=== PATIENT | female | born 1945 | race Caucasian/White ===

== ENCOUNTER → 2017-08-15 | Outpatient (CLI) | payer OTHER, MEDICARE ==
[~2017-08-15] MED LIST: ACE3 PO; ALE10 PO; ALEN70TA43 PO; BIOT1TAB12 PO; CALC1CAP PO; CLON0.5T66 PO; DICY10CA11 PO; DONE5TAB29 PO; ESOM20CA31 PO; ESOM5SUS PO; FLUT1DIS29 IH; GINK120C PO; LEVO150T78 PO; LOR5/325 PO; MULT1CAP PO; OMEP-125 PO; ONDA4TAB97 SL; OXYB5TAB86 PO; POTA10CA40 PO; SERT-1 PO; SERT-179 PO; SULF500T42 PO; SULF500T48 PO; [UNRECOGNIZED DRUG - CODE] IH; [UNRECOGNIZED DRUG - CODE] PO; advair; klonopin PO; spiriva; spiriva INH; synthroid PO; zoloft
--- NOTE | 2017-08-15 15:17 | RADIOLOGY IMAGING REPORT ---
FACILITY: [facility] PATIENT NAME: Catarina James : 1945 MR: [id number] V: [id number] EXAM DATE: ORDERING PHYSICIAN: SULTANA HOUSER TECHNOLOGIST: Location: [facility] Patient: Catarina James : 1945 Visit/Account:[id number] Date of Sevice: 08/15/2017 HEAD W/O CONTRAST History: Dizziness x2 months TECHNIQUE: Contiguous angled axial images were obtained from the vertex through the base of the sku ll without intravenous contrast. One of the following dose optimization techniques was utilized in e performance of this exam: Automated exposure control; adjustment of the mA and/or kV according to t he patient's size; or use of an iterative reconstruction technique. Specific details can be referen yun in the facility's radiology CT exam operational policy. COMPARISON STUDIES: Head CT 07/30/2013 FINDINGS: Ventricles / sulci / fissures: Negative. Masses / hemorrhage / midline shift: Negative. Intra-axial findings: Normal. Extra-axial fluid collections: Negative. Intracranial vasculature and dural sinuses: Negative. Skull base / calvarium: 5 mm hypodense lesion seen in the left posterior calvarium is unchanged from 2013 and consequently benign, probable tiny hemangioma. Scalp: negative Visualized mastoid air cells / paranasal sinuses: Very minimal fluid seen in the right sphenoid sinus is unchanged from 2013. Paranasal sinuses otherwise well aerated. Mastoid air cells are well-aerated . Orbits: Remote cataract surgery. IMPRESSION: Negative exam. Etiology of patient's symptoms is not identified. Report Dictated By: Stevan Talbert MD at 08/15/2017 3:07 PM Report E-Signed By: Stevan Talbert MD at 08/15/2017 3:12 PM WSN:[id number]
== END ==
LOC: CT 14:31
PROVIDERS: ATTEND Family Medicine
DX: R42 Dizziness and giddiness (principal)
CPT/HCPCS: 70450

== ENCOUNTER 2017-08-31 14:52 | Emergency (ER) | payer OTHER, MEDICARE ==
--- NOTE | 2017-08-31 15:01 | ER Report ---
History and Physical Time Seen By MD: 15:01 Hx. of Stated Complaint: weakness dyspnea (ALEXANDRIA GILMORE) HPI/ROS Patient is a 71-year-old female has been feeling bad for 3 weeks was seen by her primary care provider was brought oral antibiotics for what she called a pneumonia M states is getting better after the antibiotic she actually became more week dyspnea worse at night and she is on oxygen at home for long-term COPD she is an active smoker states half a pack a day last 58 years (ALEXANDRIA GILMORE) Allergies: Coded Allergies: cefaclor (Verified Allergy, Unknown, 11/13/15) Home Meds Reported Medications Biotin (BIOTIN) 1 Mg Tablet, 1 MG PO QDAY 01/06/16 Multivitamin W-Minerals/Gin (SUPER GINSENG MULTIVIT CAP) 1 Each Capsule, 1 EACH PO QDAY, CAPSULE 01/06/16 Ginkgo Biloba Extract (GINKGO BILOBA) 120 Mg Capsule, 120 MG PO QDAY, CAPSULE 01/06/16 Oxybutynin Chloride (OXYBUTYNIN CHLORIDE) 5 Mg Tablet, 5 MG PO QDAY, TAB 01/06/16 Omeprazole (OMEPRAZOLE) 20 Mg Capsule.dr, 1 CAP PO QDAY, CAP 01/06/16 Donepezil Hcl (DONEPEZIL HCL) 5 Mg Tablet, 10 MG PO QDAY, TAB 01/06/16 Dicyclomine Hcl (DICYCLOMINE HCL) 10 Mg Capsule, 10 MG PO QID, CAPSULE 01/06/16 Acetaminophen/Codeine (TYLENOL #3 (OR EQUIV)) 1 Ea Tab, 1 EA PO BID-TID, TAB 11/13/15 Albuterol Sulfate (ACCUNEB) 1.25 Mg/3 Ml Vial.neb, 1.25 MG IH 3-4XD 07/30/13 Sulfasalazine (AZULFIDINE) 500 Mg Tablet, 1000 MG PO QID 01/08/13 Clonazepam (KLONOPIN) 0.5 Mg Tablet, 1 MG PO BID Y 01/08/13 Sertraline Hcl (ZOLOFT) 50 Mg Tablet, 100 MG PO BID 01/08/13 Fluticasone/Salmeterol (ADVAIR 500-50 DISKUS) 1 Each Disk.w.dev, 1 EACH IH BID 01/08/13 Levothyroxine Sodium (LEVOTHYROXINE SODIUM) 150 Mcg Tablet, 75 MCG PO DAILY 01/08/13 Calcium Carbonate/Vitamin D3 (CALCIUM WITH VITAMIN D3 SOFTGL) 1 Each Capsule, 1 EACH PO BIDBS 01/08/13 Alendronate Sodium (FOSAMAX) 70 Mg Tablet, 70 MG PO QWEEKF take weekly on Sundays01/08/13 Past Medical/Surgical History History of heart murmur, Crohn's disease, colectomy, GERD, hysterectomy, one half pack per day smoker for 58 years (ALEXANDRIA GILMORE) Reviewed Nurses Notes: Yes Old Medical Records Reviewed: Yes (ALEXANDRIA GILMORE) Hx Smoking: Yes (1PPD X 56 YRS ) Smoking Status: Current: Every Day Smoker Exposure to Second Hand Smoke?: No Hx Substance Use Disorder: No Hx Alcohol Use: No (ALEXANDRIA GILMORE) Constitutional Vital Sign - Last 24 Hours 08/31/17 08/31/17 08/31/17 08/31/17 15:04 15:06 15:07 15:22 Temp 98.9 Pulse 87 92 85 Resp 22 B/P (MAP) 107/75 (86) 107/75 Pulse Ox 84 82 94 O2 Delivery Room Air 08/31/17 08/31/17 08/31/17 08/31/17 15:26 15:26 15:32 15:37 Pulse 87 86 88 Resp 18 18 Pulse Ox 94 97 O2 Delivery Nasal Cannula O2 Flow Rate 2.0 08/31/17 08/31/17 08/31/17 08/31/17 15:52 16:07 16:22 16:37 Pulse 83 85 ??? 82 Pulse Ox 91 94 92 08/31/17 08/31/17 08/31/17 08/31/17 16:42 16:57 17:12 17:27 Pulse 87 ??? 81 80 Pulse Ox 90 91 89 08/31/17 08/31/17 08/31/17 08/31/17 17:42 17:57 18:01 18:06 Pulse 83 80 B/P (MAP) 104/71 (82) Pulse Ox 88 87 O2 Flow Rate 3.0 08/31/17 08/31/17 08/31/17 08/31/17 18:12 18:14 18:20 18:27 Pulse ??? 76 B/P (MAP) 131/60 (83) 115/96 (102) Pulse Ox 89 ([facility],TOÑA Jauregui MD) Physical Exam 71-year-old year-old female alert and oriented mild distress HEENT head is normocephalic/atraumatic tympanic membranes are non-reddened throat is non- reddened he is membranes are dry neck is supple no JVD heart rate is irregular lungs she has crackles in the right base abdomen is soft bowel sounds 4 quadrants moves all extremities no peripheral edema (ALEXANDRIA GILMORE APRN-Nicki) Medical Decision Making Data Points Result Diagram: 08/31/17 1535 08/31/17 1535 Laboratory Hematology Test 08/31/17 15:35 08/31/17 15:48 08/31/17 16:25 Red Blood Count 3.92 M/uL (4.17-5.56) Mean Corpuscular Volume 117.5 fL (80.0-96.0) Mean Corpuscular Hemoglobin 40.3 pg (26.0-33.0) Mean Corpuscular Hemoglobin Concent 34.3 g/dL (32.0-36.0) Red Cell Distribution Width 15.9 % (11.5-14.5) Mean Platelet Volume 7.5 fL (7.2-11.1) Neutrophils (%) (Auto) 51.0 % (39.4-72.5) Lymphocytes (%) (Auto) 35.4 % (17.6-49.6) Monocytes (%) (Auto) 11.0 % (4.1-12.4) Eosinophils (%) (Auto) 1.2 % (0.4-6.7) Basophils (%) (Auto) 1.4 % (0.3-1.4) Nucleated RBC Relative Count (auto) 0.0 /100WBC Neutrophils # (Auto) 2.5 K/uL (2.0-7.4) Lymphocytes # (Auto) 1.7 K/uL (1.3-3.6) Monocytes # (Auto) 0.5 K/uL (0.3-1.0) Eosinophils # (Auto) 0.1 K/uL (0.0-0.5) Basophils # (Auto) 0.1 K/uL (0.0-0.1) Nucleated RBC Absolute Count (auto) 0.00 K/uL Peripheral Blood Smear Y/N Prothrombin Time 13.1 seconds (12.0-14.4) Prothromb Time International Ratio 0.99 Activated Partial Thromboplast Time 29 seconds (23-35) D-Dimer Quantitative (PE/DVT) 0.95 ug/ml (0-0.50) Sodium Level 138 mmol/L (137-145) Potassium Level 3.4 mmol/L (3.5-5.0) Chloride Level 99 mmol/L (98-107) Carbon Dioxide Level 32 mmol/L (22-31) Blood Urea Nitrogen 6 mg/dl (7-18) Creatinine 0.80 mg/dl (0.52-1.04) Glomerular Filtration Rate Calc > 60.0 Random Glucose 86 mg/dl (75-110) Calcium Level 9.0 mg/dl (8.4-10.2) Magnesium Level 1.6 mg/dl (1.7-2.2) Total Bilirubin 0.8 mg/dl (0.2-1.3) Aspartate Amino Transf (AST/SGOT) 15 U/L (0-35) Alanine Aminotransferase (ALT/SGPT) 21 U/L (0-56) Alkaline Phosphatase 93 U/L (0-126) Troponin I < 0.012 ng/ml B-Type Natriuretic Peptide 173 pg/ml (0-100) Total Protein 7.1 gm/dl (6.3-8.2) Albumin 3.6 g/dl (3.5-5.0) Influenza Virus Type A (PCR) Negative (NEGATIVE) Influenza Virus Type B (PCR) Negative (NEGATIVE) Urine Color Colorless Urine Clarity Clear Urine pH 6.0 pH (4.8-9.5) Urine Specific [place] 1.001 Urine Protein Negative mg/dL (NEGATIVE) Urine Glucose (UA) Negative mg/dL (NEGATIVE) Urine Ketones Negative mg/dL (NEGATIVE) Urine Blood Negative (NEGATIVE) Urine Nitrite Negative (NEGATIVE) Urine Bilirubin Negative (NEGATIVE) Urine Urobilinogen Negative mg/dL (0.2-1.9) Urine Leukocyte Esterase Trace (NEGATIVE) Urine RBC <1 /HPF (0-2/HPF) Urine WBC 3 /HPF (0-5/HPF) Urine Squamous Epithelial Cells None /LPF (</=FEW) Urine Bacteria Moderate /HPF (NONE-FEW) Urine Mucus None /HPF (NONE-FEW) Chemistry Test 08/31/17 15:35 08/31/17 15:48 08/31/17 16:25 White Blood Count 4.9 k/uL (4.5-11.0) Red Blood Count 3.92 M/uL (4.17-5.56) Hemoglobin 15.8 g/dL (12.0-16.0) Hematocrit 46.1 % (34.0-47.0) Mean Corpuscular Volume 117.5 fL (80.0-96.0) Mean Corpuscular Hemoglobin 40.3 pg (26.0-33.0) Mean Corpuscular Hemoglobin Concent 34.3 g/dL (32.0-36.0) Red Cell Distribution Width 15.9 % (11.5-14.5) Platelet Count 317 K/uL (150-450) Mean Platelet Volume 7.5 fL (7.2-11.1) Neutrophils (%) (Auto) 51.0 % (39.4-72.5) Lymphocytes (%) (Auto) 35.4 % (17.6-49.6) Monocytes (%) (Auto) 11.0 % (4.1-12.4) Eosinophils (%) (Auto) 1.2 % (0.4-6.7) Basophils (%) (Auto) 1.4 % (0.3-1.4) Nucleated RBC Relative Count (auto) 0.0 /100WBC Neutrophils # (Auto) 2.5 K/uL (2.0-7.4) Lymphocytes # (Auto) 1.7 K/uL (1.3-3.6) Monocytes # (Auto) 0.5 K/uL (0.3-1.0) Eosinophils # (Auto) 0.1 K/uL (0.0-0.5) Basophils # (Auto) 0.1 K/uL (0.0-0.1) Nucleated RBC Absolute Count (auto) 0.00 K/uL Peripheral Blood Smear Y/N Prothrombin Time 13.1 seconds (12.0-14.4) Prothromb Time International Ratio 0.99 Activated Partial Thromboplast Time 29 seconds (23-35) D-Dimer Quantitative (PE/DVT) 0.95 ug/ml (0-0.50) Glomerular Filtration Rate Calc > 60.0 Calcium Level 9.0 mg/dl (8.4-10.2) Magnesium Level 1.6 mg/dl (1.7-2.2) Total Bilirubin 0.8 mg/dl (0.2-1.3) Aspartate Amino Transf (AST/SGOT) 15 U/L (0-35) Alanine Aminotransferase (ALT/SGPT) 21 U/L (0-56) Alkaline Phosphatase 93 U/L (0-126) Troponin I < 0.012 ng/ml B-Type Natriuretic Peptide 173 pg/ml (0-100) Total Protein 7.1 gm/dl (6.3-8.2) Albumin 3.6 g/dl (3.5-5.0) Influenza Virus Type A (PCR) Negative (NEGATIVE) Influenza Virus Type B (PCR) Negative (NEGATIVE) Urine Color Colorless Urine Clarity Clear Urine pH 6.0 pH (4.8-9.5) Urine Specific [place] 1.001 Urine Protein Negative mg/dL (NEGATIVE) Urine Glucose (UA) Negative mg/dL (NEGATIVE) Urine Ketones Negative mg/dL (NEGATIVE) Urine Blood Negative (NEGATIVE) Urine Nitrite Negative (NEGATIVE) Urine Bilirubin Negative (NEGATIVE) Urine Urobilinogen Negative mg/dL (0.2-1.9) Urine Leukocyte Esterase Trace (NEGATIVE) Urine RBC <1 /HPF (0-2/HPF) Urine WBC 3 /HPF (0-5/HPF) Urine Squamous Epithelial Cells None /LPF (</=FEW) Urine Bacteria Moderate /HPF (NONE-FEW) Urine Mucus None /HPF (NONE-FEW) Coagulation Test 08/31/17 15:35 Prothrombin Time 13.1 seconds Prothromb Time International Ratio 0.99 Activated Partial Thromboplast Time 29 seconds D-Dimer Quantitative (PE/DVT) 0.95 ug/ml Urinalysis Test 08/31/17 16:25 Urine Color Colorless Urine Clarity Clear Urine pH 6.0 pH (4.8-9.5) Urine Specific [place] 1.001 Urine Protein Negative mg/dL (NEGATIVE) Urine Glucose (UA) Negative mg/dL (NEGATIVE) Urine Ketones Negative mg/dL (NEGATIVE) Urine Blood Negative (NEGATIVE) Urine Nitrite Negative (NEGATIVE) Urine Bilirubin Negative (NEGATIVE) Urine Urobilinogen Negative mg/dL (0.2-1.9) Urine Leukocyte Esterase Trace (NEGATIVE) Urine RBC <1 /HPF (0-2/HPF) Urine WBC 3 /HPF (0-5/HPF) Urine Squamous Epithelial Cells None /LPF (</=FEW) Urine Bacteria Moderate /HPF (NONE-FEW) Urine Mucus None /HPF (NONE-FEW) (TOÑA RICHEY MD) EKG/Imaging EKG Interpretation EKG at 1521 normal sinus ventricular rate 86 QTC is 500 noted to be extended Imaging FACILITY: [facility] [place] PATIENT NAME: Catarina James : 1945 MR: [id number] V: [id number] EXAM DATE: ORDERING PHYSICIAN: ALEXANDRIA GILMORE TECHNOLOGIST: Location: Patient: Catarina James : 1945 Visit/Account:[id number] Date of Sevice: 08/31/2017 EXAMINATION: Portable chest radiograph single view at 3:44 PM HISTORY: Respiratory distress. Weakness. Cough. COMPARISON: 07/30/2017. FINDINGS: A single portable AP view of the chest is obtained. Lines/tubes: None. Lungs/pleura: There is confluent opacity at the right lung base which obscures the right hemidiaphragm, similar in appearance to prior exam. No new area of consolidation. No evidence of pneumothorax. Pulmonary vascularity is within normal limits. Heart: Stable heart size. Mediastinum: Stable mediastinal contours. Bony structures/body wall: Negative. IMPRESSION: Confluent opacity at the right lung base, similar in appearance to prior examination. This could represent atelectasis or an infiltrate and probably adjacent small pleural effusion. Report Dictated By: Brenton Hernandez MD at 08/31/2017 4:01 PM Report E-Signed By: Brenton Hernandez MD at 08/31/2017 4:04 PM WSN:[id number]: [facility] PATIENT NAME: Catarina James : 1945 MR: [id number] V: [id number] EXAM DATE: ORDERING PHYSICIAN: ALEXANDRIA GILMORE TECHNOLOGIST: Location: Patient: Catarina James : 1945 Visit/Account:[id number] Date of Sevice: 08/31/2017 CT angiogram chest with contrast Indication: Dyspnea. Comparison: None available. Technique: Axial CT images are obtained through the chest after administration of 75 mL Isovue 370 IV contrast. Reformatted coronal and sagittal images were reviewed as well as coronal MIP images. One of the following dose optimization techniques was utilized in the performance of this exam: automated exposure control; adjustment of the mA and/ or kV according to the patient's size; or use of an iterative reconstruction technique. Specific details can be referenced in the facility's radiology CT exam operational policy. FINDINGS: No evidence of filling defect within the pulmonary vasculature to suggest pulmonary embolus. Heart is mildly diffusely enlarged without pericardial effusion. Aorta shows no aneurysm or dissection. Mediastinum and hilar regions show several small lymph nodes. There is a ill-defined masslike appearance to the right infrahilar region measuring approximately 3.4 cm. There is consolidation of the right lower lobe with small right pleural effusion. The remaining right lung shows no consolidation. Both lungs do show emphysematous changes. Left lung is clear. No discrete nodules. Mild scarring seen in both lungs. No pneumothorax or left pleural effusion. Bony structures show no acute fractures or discrete lesions. Chest wall shows no enlarged axillary lymph nodes or masses. Limited views of the upper abdomen are unremarkable. IMPRESSION: 1. No evidence of pulmonary embolus. 2. There is consolidation of the right lower lobe with small right pleural effusion. This could be due to pneumonia. However the right infrahilar region does show a masslike appearance which may represent a central mass/tumor causing postobstructive pneumonitis. 3. Mild diffuse cardiomegaly. I called report to ALEXANDRIA GILMORE at 08/31/2017 5:35 PM. Report Dictated By: Nick Tomas at 08/31/2017 5:24 PM Report E-Signed By: Nick Tomas at 08/31/2017 5:36 PM WSN:[id number] (ALEXANDRIA GILMORE) ED Course/Re-evaluation ED Course Discuss this patient with Dr. Lozano hospitalist he was not sure if we can do the biopsy procedure in our institution I did talk to Dr. Rudd surgeon he stated that was not a procedure he could perform my did talk to family with patient's weakness they do not want to be sent out of [place] will have them follow up with cancer center tomorrow to organize further treatment and biopsy of the lung mass Re-evaluation Patient walked with minimal assistance of her sister to the bathroom with a walker Decision to Disposition Date: Aug 31, 2017 Decision to Disposition Time: 18:06 (ALEXANDRIA GILMORE) Depart Departure Latest Vital Signs Vital Signs Date Time Temp Pulse Resp B/P (MAP) Pulse Ox O2 Delivery O2 Flow Rate FiO2 08/31/17 18:27 76 89 08/31/17 18:20 115/96 (102) 08/31/17 18:06 3.0 08/31/17 15:32 18 08/31/17 15:26 Nasal Cannula 08/31/17 15:06 98.9 (TOÑA RICHEY MD) Impression: Primary Impression: Hilar mass Additional Impression: Weakness Condition: Improved Disposition: HOME OR SELF-CARE Referrals: [facility], ONC 1 Day Patient Instructions: Soft Tissue Mass (ED) Additional Instructions: See oncology tomorrow for planned to biopsy your lung mass no change in medications [place] 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
[2017-08-31] MEDS ORDERED: NS(*) 0.9% 1000 ML BAG 1,000 ML IV ONE (15:16)
[2017-08-31] MEDS ORDERED: methylPREDNIS SUCC 125 MG/2ML IVP ONE (15:20)
[2017-08-31] MEDS ORDERED: ALBUTEROL 2.5 MG/3 ML NEB NEB ONE (15:20)
[2017-08-31 15:44] LABS: PLATELET COUNT, AUTOMATED 317 K/uL (150-450)
[2017-08-31 16:01] LABS: INR 0.99
--- NOTE | 2017-08-31 16:01 | EKG ---
FACILITY: [facility] PATIENT NAME: BONNIE MCKINLEY : [id number] MR: [id number] V: [id number] EXAM DATE: ORDERING PHYSICIAN: ALEXANDRIA GILMORE TECHNOLOGIST: JEYSON Test Reason : CP Blood Pressure : / mmHG Vent. Rate : 086 BPM Atrial Rate : 086 BPM P-R Int : 146 ms QRS Dur : 078 ms QT Int : 418 ms P-R-T Axes : 038 -76 031 degrees QTc Int : 500 ms Sinus rhythm Possible Left atrial enlargement Left axis deviation Nonspecific interventricular conduction delay Prolonged QT Abnormal ECG Confirmed by LYN LYNNE ([id number]) on 08/31/2017 8:21:30 PM Referred By: YANI Confirmed By:LYN LYNNE
--- NOTE | 2017-08-31 16:09 | RADIOLOGY IMAGING REPORT ---
FACILITY: [facility] [place] PATIENT NAME: Catarina James : 1945 MR: [id number] V: [id number] EXAM DATE: ORDERING PHYSICIAN: ALEXANDRIA GILMORE TECHNOLOGIST: Location: [facility] Patient: Catarina James : 1945 Visit/Account:[id number] Date of Sevice: 08/31/2017 EXAMINATION: Portable chest radiograph single view at 3:44 PM HISTORY: Respiratory distress. Weakness. Cough. COMPARISON: 07/30/2017. FINDINGS: A single portable AP view of the chest is obtained. Lines/tubes: None. Lungs/pleura: There is confluent opacity at the right lung base which obscures the right hemidiaphra gm, similar in appearance to prior exam. No new area of consolidation. No evidence of pneumothorax. P ulmonary vascularity is within normal limits. Heart: Stable heart size. Mediastinum: Stable mediastinal contours. Bony structures/body wall: Negative. IMPRESSION: Confluent opacity at the right lung base, similar in appearance to prior examination. This could repr esent atelectasis or an infiltrate and probably adjacent small pleural effusion. Report Dictated By: Brenton Hernandez MD at 08/31/2017 4:01 PM Report E-Signed By: Brenton Hernandez MD at 08/31/2017 4:04 PM WSN:[id number]
[2017-08-31] MEDS ORDERED: IOPAMIDOL 76% 75 ML INFUS BTL 75 ML ONE (16:45)
[2017-08-31] MEDS ORDERED: NS 0.9% 50 ML VIAL 100 ML ONE (16:45)
--- NOTE | 2017-08-31 17:39 | RADIOLOGY IMAGING REPORT ---
FACILITY: [facility] PATIENT NAME: Catarina James : 1945 MR: [id number] V: [id number] EXAM DATE: ORDERING PHYSICIAN: ALEXANDRIA GILMORE TECHNOLOGIST: Location: [facility] Patient: Catarina James : 1945 Visit/Account:[id number] Date of Sevice: 08/31/2017 CT angiogram chest with contrast Indication: Dyspnea. Comparison: None available. Technique: Axial CT images are obtained through the chest after administration of 75 mL Isovue 370 IV contrast. Reformatted coronal and sagittal images were reviewed as well as coronal MIP images. One of the following dose optimization techniques was utilized in the performance of this exam: auto mated exposure control; adjustment of the mA and/or kV according to the patient's size; or use of an iterative reconstruction technique. Specific details can be referenced in the facility's radiology C T exam operational policy. FINDINGS: No evidence of filling defect within the pulmonary vasculature to suggest pulmonary embolus. Heart is mildly diffusely enlarged without pericardial effusion. Aorta shows no aneurysm or dissectio n. Mediastinum and hilar regions show several small lymph nodes. There is a ill-defined masslike appe arance to the right infrahilar region measuring approximately 3.4 cm. There is consolidation of the right lower lobe with small right pleural effusion. The remaining right lung shows no consolidation. Both lungs do show emphysematous changes. Left lung is clear. No discre te nodules. Mild scarring seen in both lungs. No pneumothorax or left pleural effusion. Bony structures show no acute fractures or discrete lesions. Chest wall shows no enlarged axillary ly mph nodes or masses. Limited views of the upper abdomen are unremarkable. IMPRESSION: 1. No evidence of pulmonary embolus. 2. There is consolidation of the right lower lobe with small right pleural effusion. This could be du e to pneumonia. However the right infrahilar region does show a masslike appearance which may represe nt a central mass/tumor causing postobstructive pneumonitis. 3. Mild diffuse cardiomegaly. I called report to ALEXANDRIA GILMORE at 08/31/2017 5:35 PM. Report Dictated By: Nick Tomas at 08/31/2017 5:24 PM Report E-Signed By: Nick Tomas at 08/31/2017 5:36 PM WSN:[id number]
[2017-08-31 18:20] VITALS: BP 115/96
== END 2017-08-31 18:39 | disposition home or self-care (01) ==
LOC: ER 14:54
DX: R91.8 Other nonspecific abnormal finding of lung field (principal); R53.1 Weakness; R01.1 Cardiac murmur, unspecified; K50.90 Crohn's disease, unspecified, without complications; K21.9 Gastro-esophageal reflux disease without esophagitis; F17.200 Nicotine dependence, unspecified, uncomplicated
CPT/HCPCS: 36415; 71045; 71275; 81001; 83735; 83880; 84484; 85025; 85379; 85610; 85730; 87040; 87070; 87502; 93005; 94640; 96361; 96374; 99284; J2930; J7030; J7050; J7613; Q9967; 82040; 82247; 82310; 82374; 82435; 82565; 82947; 84075; 84132; 84155; 84295; 84450; 84460; 84520

== ENCOUNTER → 2017-10-01 | Outpatient (CLI) | payer MEDICARE ==
[~2017-10-01] MED LIST changes: +GADOBENATE 529MG/1ML 10ML VIAL IVP ONE
--- NOTE | 2017-10-01 14:02 | RADIOLOGY IMAGING REPORT ---
FACILITY: [facility] [place]IENT NAME: Catarina James : 1945 MR: [id number] V: [id number] EXAM DATE: ORDERING PHYSICIAN: CLARIBEL SUH TECHNOLOGIST: Location: [facility] Patient: Catarina James : 1945 Visit/Account:[id number] Date of Sevice: 10/01/2017 BRAIN W W/O CONTRAST Comparisons: None. Additional pertinent history: Dizziness with lung cancer. TECHNIQUE: Multiplanar, multisequence brain MRI was performed with and without gadolinium contrast. CONTRAST: 10 ml of MultiHance. FINDINGS: Sagittal midline structures and craniocervical junction: Negative. Midline shift: None. Ventricles: Negative. Brain parenchyma: Diffusion weighted imaging: Negative. Gradient sequence: Negative. T2 weighted FLAIR images: Negative. Extra-axial spaces: Negative. Dural venous sinuses and major arterial flow voids: Negative. Intracranial enhancement: Negative.. Mastoid air cells and paranasal sinuses: Patchy increased T2 signal involving the mastoid air cells b ilaterally. Surrounding soft tissues and orbits: Negative. Impression: 1. No evidence of acute intracranial pathology. 2. Specifically no evidence of metastatic disease on today's exam. Report Dictated By: Harsha Garcia MD at 10/01/2017 1:53 PM Report E-Signed By: Harsha Garcia MD at 10/01/2017 1:58 PM WSN:[email or web address]
== END ==
LOC: MRI 12:21
PROVIDERS: ATTEND Internal Medicine Medical Oncology
DX: R91.8 Other nonspecific abnormal finding of lung field (principal); R42 Dizziness and giddiness
CPT/HCPCS: 70553; A9577

== ENCOUNTER 2017-11-01 11:43 | Inpatient (IN) | payer MEDICARE ==
[~2017-11-01] VITALS: Ht 154.9 cm; Wt 47.6 kg
[~2017-11-01 11:43] MED LIST changes: -GADOBENATE 529MG/1ML 10ML VIAL IVP ONE
[2017-11-01] MEDS ORDERED: ADENOSINE IV SOLN 3 MG/ML SYR IVP ONE ×2 (11:45)
[2017-11-01] MEDS ORDERED: ASPIRIN 81 MG CHEW PO ONE (12:00)
[2017-11-01] MEDS ORDERED: DILTIAZEM HCL* 100 MG ADDVIAL 100 MG in NS(*) 0.9% 100 ML ADDVANT BAG 100 ML IV SCH (12:00)
[2017-11-01] MEDS ORDERED: fentaNYL CITR 100 MCG/2 ML AMP ONE (12:02)
[2017-11-01 12:08] LABS: PLATELET COUNT, AUTOMATED 289 K/uL (150-450)
[2017-11-01 12:13] LABS: INR 0.95
--- NOTE | 2017-11-01 12:16 | ER Report ---
History and Physical Time Seen By MD: 11:50 Hx. of Stated Complaint: pt in [facility], reports dizziness and chest pain and in svt HPI/ROS CHIEF COMPLAINT: Rapid heart rate HISTORY OF PRESENT ILLNESS: Patient is a 72-year-old female who was at the cancer center to receive some radiation therapy for lung cancer. During her intake process she developed chest discomfort and shortness of breath. A rapid response was called patient was found to be in narrow complex of tachycardia with a rate of approximately 200 bpm. Patient has never experienced this before. Patient states she feels shortness of breath she feels some discomfort between her shoulder blades. She also feels some chest discomfort. Patient describes the discomfort as 6 out of 10 in intensity without palliative or provoking features. REVIEW OF SYSTEMS: Constitutional: No fever, no chills. Eyes: No discharge. ENT: No sore throat. Cardiovascular: Chest pressure, racing heart rate Respiratory: No cough, patient reports dyspnea Gastrointestinal: No abdominal pain, no vomiting. Genitourinary: No hematuria. Musculoskeletal: No back pain. Skin: No rashes. Neurological: No headache. Allergies: Coded Allergies: cefaclor (Verified Allergy, Unknown, 11/13/15) Home Meds Reported Medications Paroxetine Hcl (PAXIL) 20 Mg Tablet, 10 MG PO QDAY, TAB 11/01/17 Clonazepam (CLONAZEPAM) 1 Mg Tablet, 1 MG PO BID, #6 TAB 11/01/17 Levothyroxine Sodium (LEVOTHYROXINE SODIUM) 0.112 Mg Tab, 0.112 MG PO QDAY, TAB 11/01/17 Biotin (BIOTIN) 1 Mg Tablet, 1 MG PO QDAY 01/06/16 Multivitamin W-Minerals/Gin (SUPER GINSENG MULTIVIT CAP) 1 Each Capsule, 1 EACH PO QDAY, CAPSULE 01/06/16 Omeprazole (OMEPRAZOLE) 20 Mg Capsule.dr, 1 CAP PO QDAY, CAP 01/06/16 Dicyclomine Hcl (DICYCLOMINE HCL) 10 Mg Capsule, 10 MG PO TID, CAPSULE 01/06/16 Acetaminophen/Codeine (TYLENOL #3 (OR EQUIV)) 1 Ea Tab, 1 EA PO BID-TID, TAB 11/13/15 Sulfasalazine (AZULFIDINE) 500 Mg Tablet, 500 MG PO QID 01/08/13 Fluticasone/Salmeterol (ADVAIR 500-50 DISKUS) 1 Each Disk.w.dev, 1 EACH IH BID 01/08/13 Calcium Carbonate/Vitamin D3 (CALCIUM WITH VITAMIN D3 SOFTGL) 1 Each Capsule, 1 EACH PO DAILY 01/08/13 Discontinued Reported Medications Ginkgo Biloba Extract (GINKGO BILOBA) 120 Mg Capsule, 120 MG PO QDAY, CAPSULE 01/06/16 Oxybutynin Chloride (OXYBUTYNIN CHLORIDE) 5 Mg Tablet, 5 MG PO QDAY, TAB 01/06/16 Donepezil Hcl (DONEPEZIL HCL) 5 Mg Tablet, 10 MG PO QDAY, TAB 01/06/16 Albuterol Sulfate (ACCUNEB) 1.25 Mg/3 Ml Vial.neb, 1.25 MG IH 3-4XD 07/30/13 Clonazepam (KLONOPIN) 0.5 Mg Tablet, 1 MG PO BID Y 01/08/13 Sertraline Hcl (ZOLOFT) 50 Mg Tablet, 100 MG PO BID 01/08/13 Levothyroxine Sodium (LEVOTHYROXINE SODIUM) 150 Mcg Tablet, 75 MCG PO DAILY 01/08/13 Alendronate Sodium (FOSAMAX) 70 Mg Tablet, 70 MG PO QWEEKF take weekly on Sundays01/08/13 Past Medical/Surgical History Past medical history for squamous cell carcinoma of the right lung this was diagnosed in April 2017. Additional past medical history includes oxygen dependent COPD, osteoporosis, history of anxiety. Patient had a bowel resection secondary to Crohn's disease status post hysterectomy and cholecystectomy. Hx Smoking: Yes (1PPD X 56 YRS ) Smoking Status: Current: Every Day Smoker Exposure to Second Hand Smoke?: No Hx Substance Use Disorder: No Hx Alcohol Use: No Constitutional Vital Sign - Last 24 Hours 11/01/17 11/01/17 11/01/17 11/01/17 11:43 11:44 11:45 11:50 Temp 98.6 Pulse ??? 200 Resp 22 B/P (MAP) 72/36 72/36 (48) 89/68 (75) Pulse Ox 100 O2 Delivery Nasal Cannula 11/01/17 11/01/17 11/01/17 11/01/17 11:55 11:58 12:00 12:05 Pulse 104 B/P (MAP) 102/69 (80) 109/68 (82) 101/70 (80) Pulse Ox 86 11/01/17 11/01/17 11/01/17 11/01/17 12:10 12:15 12:20 12:25 B/P (MAP) 110/62 (78) 93/60 (71) 108/60 (76) 105/59 (74) 11/01/17 11/01/17 11/01/17 11/01/17 12:28 12:30 12:35 12:40 Pulse 86 Resp 24 B/P (MAP) 82/38 (53) 89/63 (72) 94/58 (70) Pulse Ox 97 11/01/17 11/01/17 11/01/17 11/01/17 12:43 12:45 12:50 12:55 Pulse 90 Resp 16 B/P (MAP) 101/52 (68) 105/67 (80) 101/59 (73) Pulse Ox 99 11/01/17 11/01/17 11/01/17 12:58 13:00 13:05 Pulse 92 Resp 9 B/P (MAP) 80/66 (71) 93/60 (71) Pulse Ox 95 Physical Exam General/Constitutional: Patient is awake, alert, nontoxic, increased work of breathing Head: Normocephalic and atraumatic. Eyes: Conjunctival clear, Pupils are equal and reactive to light. Ears:External canals are clear. Tympanic membranes are clear with normal landmarks and light reflex. Nares: No rhinorrhea or bleeding. Turbinates are pink and moist. Oropharyngeal: Mucous membranes are moist. There is no pharyngeal erythema or exudate. There are no palatal petechiae. Uvula is midline and symmetrical. Neck: Supple, no adenopathy. Cardiovascular: Rapid heart rate approximately 200 bpm. No audible murmurs rubs or gallops. Pulmonary: Lungs are clear to auscultation bilaterally. There are no wheezes, rales, or rhonchi. Chest rise is symmetrical Abdomen: Soft, nontender, no guarding or peritoneal signs. Extremities: No gross deformities, No peripheral cyanosis. Able to move all 4 extremities. Neuro: Alert and oriented X3, anxious appearing Skin: No rashes, skin is warm dry and well perfused. Medical Decision Making Data Points Result Diagram: 11/02/17 0534 11/02/17 0534 Laboratory Hematology Test 11/01/17 11:45 Prothrombin Time 12.7 seconds (12.0-14.4) Prothromb Time International Ratio 0.95 Activated Partial Thromboplast Time 27 seconds (23-35) Total Bilirubin 0.6 mg/dl (0.2-1.3) Aspartate Amino Transf (AST/SGOT) 16 U/L (0-35) Alanine Aminotransferase (ALT/SGPT) 23 U/L (0-56) Alkaline Phosphatase 109 U/L (0-126) B-Type Natriuretic Peptide 201 pg/ml (0-100) Total Protein 8.0 gm/dl (6.3-8.2) Albumin 4.0 g/dl (3.5-5.0) Chemistry Test 11/01/17 11:45 Prothrombin Time 12.7 seconds (12.0-14.4) Prothromb Time International Ratio 0.95 Activated Partial Thromboplast Time 27 seconds (23-35) Total Bilirubin 0.6 mg/dl (0.2-1.3) Aspartate Amino Transf (AST/SGOT) 16 U/L (0-35) Alanine Aminotransferase (ALT/SGPT) 23 U/L (0-56) Alkaline Phosphatase 109 U/L (0-126) B-Type Natriuretic Peptide 201 pg/ml (0-100) Total Protein 8.0 gm/dl (6.3-8.2) Albumin 4.0 g/dl (3.5-5.0) Coagulation Test 11/01/17 11:45 Prothrombin Time 12.7 seconds Prothromb Time International Ratio 0.95 Activated Partial Thromboplast Time 27 seconds EKG/Imaging EKG Interpretation EKG #1 shows narrow complex tachycardia with ventricular rate of approximately 200 bpm, rhythm looks like supraventricular tachycardia. EKG #2 shows sinus tachycardia with occasional premature atrial complexes. Imaging FACILITY: [facility] PATIENT NAME: Catarina James : 1945 MR: [id number] V: [id number] EXAM DATE: [id number] ORDERING PHYSICIAN: JOEY LOUISE TECHNOLOGIST: Location: [facility] - [place] Patient: Catarina James : 1945 Visit/Account:[id number] Date of Sevice: 11/01/2017 CHEST SINGLE AP INDICATION: Chest Pain COMPARISON: 08/31/[address] 08/31/2017 FINDINGS: Heart size within normal limits. Reidentified is fullness of the right hilum with atelectasis versus infiltrate at the right lung base and small underlying pleural effusion The left lung is clear IMPRESSION: 1. Persistent fullness of the right pulmonary abhinav with atelectasis versus infiltrate and small pleural effusion at the right lung base. On prior CT scan , there was possible infrahilar mass. If clinically appropriate recommend repeat CT scan. Report Dictated By: Huey Quigley at 11/01/2017 12:25 PM Report E-Signed By: Huey Quigley at 11/01/2017 12:27 PM WSN:MARY JANE ED Course/Re-evaluation Clinical Indication for ER IV: Hydration, IV Access ED Course 11/01/2017 12:15:28 pm patient was brought immediately into the treatment room from the cancer center from the rapid response team. EKG shows a narrow complex tachycardia and pattern suggesting SVT. In the process of drawing up adenosine and placing the patient on the [place] the patient apparently converted back to a sinus rhythm however she intermittently has short runs of SVT. The pain has improved. Blood pressure is currently 93/60. Because the patient has runs of SVT plan at this time will be to start Cardizem at 5 mg per hour we will not give a bolus at this time I will also give 25 g of fentanyl for discomfort. 11/01/2017 12:51:46 pm patient remained symptom-free at this point. She has remained in sinus rhythm with occasional PACs with a ventricular rate around 90 bpm. I did discuss the case with the on-call hospitalist we will observe the patient overnight for any dysrhythmias. Patient understands. No questions or concerns at time of disposition. Re-evaluation The patient currently on diltiazem drip at 5 mg per hour patient and mostly sinus rhythm now with ventricular rate of 80 bpm with occasional PACs. Patient is symptom-free at this time Decision to Disposition Date: Nov 01, 2017 Decision to Disposition Time: 12:52 Depart Departure Latest Vital Signs Vital Signs Date Time Temp Pulse Resp B/P (MAP) Pulse Ox O2 Delivery O2 Flow Rate FiO2 11/01/17 13:05 93/60 (71) 11/01/17 12:58 92 9 95 11/01/17 11:44 98.6 Nasal Cannula Impression: Primary Impression: Supraventricular tachycardia Condition: Improved Disposition: Admitted from ER (to dr esposito) Referrals: SULTANA HOUSER DO (PCP) JOEY LOUISE MD Nov 01, 2017 12:16
[2017-11-01] MEDS ORDERED: fentaNYL CITR 100 MCG/2 ML AMP IVP ONE (12:20)
--- NOTE | 2017-11-01 12:31 | RADIOLOGY IMAGING REPORT ---
FACILITY: [facility] - [place] PATIENT NAME: Catarina James : 1945 MR: [id number] V: [id number] EXAM DATE: ORDERING PHYSICIAN: JOEY LOUISE TECHNOLOGIST: Location: [facility] Patient: Catarina James : 1945 Visit/Account:[id number] Date of Sevice: 11/01/2017 CHEST SINGLE AP INDICATION: Chest Pain COMPARISON: 08/31/[address] 08/31/2017 FINDINGS: Heart size within normal limits. Reidentified is fullness of the right hilum with atelectasis versus infiltrate at the right lung base and small underlying pleural effusion The left lung is clear IMPRESSION: 1. Persistent fullness of the right pulmonary abhinav with atelectasis versus infiltrate and small pleu ral effusion at the right lung base. On prior CT scan, there was possible infrahilar mass. If clini vasile appropriate recommend repeat CT scan. Report Dictated By: Huey Quigley at 11/01/2017 12:25 PM Report E-Signed By: Huey Quigley at 11/01/2017 12:27 PM WSN:[id number]
--- NOTE | 2017-11-01 12:53 | EKG ---
FACILITY: [facility] PATIENT NAME: BONNIE MCKINLEY : [id number] MR: [id number] V: [id number] EXAM DATE: ORDERING PHYSICIAN: JOEY LOUISE TECHNOLOGIST: Gerardo Parker Reason : Blood Pressure : / mmHG Vent. Rate : 113 BPM Atrial Rate : 113 BPM P-R Int : 128 ms QRS Dur : 080 ms QT Int : 356 ms P-R-T Axes : 043 000 036 degrees QTc Int : 488 ms Sinus tachycardia with premature atrial complexes Indeterminate axis RSR' or QR pattern in V1 suggests right ventricular conduction delay Borderline ECG No previous ECGs available Confirmed by COTY JACKSON ([id number]) on 11/01/2017 4:45:53 PM Referred By: Confirmed By:COTY JACKSON
--- NOTE | 2017-11-01 12:55 | EKG ---
FACILITY: [facility] PATIENT NAME: BONNIE MCKINLEY : [id number] MR: [id number] V: [id number] EXAM DATE: ORDERING PHYSICIAN: JOEY LOUISE TECHNOLOGIST: Gerardo Parker Reason : Blood Pressure : / mmHG Vent. Rate : 118 BPM Atrial Rate : 118 BPM P-R Int : 124 ms QRS Dur : 076 ms QT Int : 336 ms P-R-T Axes : 048 120 058 degrees QTc Int : 470 ms Sinus tachycardia with premature atrial complexes Right ventricular hypertrophy with repolarization abnormality Abnormal ECG No previous ECGs available Confirmed by COTY JACKSON ([id number]) on 11/01/2017 4:45:41 PM Referred By: Confirmed By:COTY JACKSON
--- NOTE | 2017-11-01 12:58 | EKG ---
FACILITY: [facility] - [place] PATIENT NAME: BONNIE MCKINLEY : [id number] MR: [id number] V: [id number] EXAM DATE: ORDERING PHYSICIAN: JOEY LOUISE TECHNOLOGIST: Gerardo Parker Reason : Blood Pressure : / mmHG Vent. Rate : 200 BPM Atrial Rate : 214 BPM P-R Int : 000 ms QRS Dur : 140 ms QT Int : 248 ms P-R-T Axes : 000 097 043 degrees QTc Int : 452 ms Supraventricular tachycardia Right bundle branch block Abnormal ECG No previous ECGs available Confirmed by COTY JACKSON ([id number]) on 11/01/2017 4:45:26 PM Referred By: Confirmed By:COTY JACKSON
[2017-11-01] MEDS ORDERED: NS(*) 0.9% 1000 ML BAG 1,000 ML IV ONE (13:00)
[2017-11-01] MEDS ORDERED: NS(*) 0.9% 500 ML BAG 500 ML IV ONE (13:05)
--- NOTE | 2017-11-01 13:59 | EKG ---
[place] [facility] [place]IENT NAME: BONNIE MCKINLEY : [id number] MR: [id number] V: [id number] EXAM DATE: ORDERING PHYSICIAN: JOEY LOUISE TECHNOLOGIST: OLIVE Test Reason : Blood Pressure : / mmHG Vent. Rate : 096 BPM Atrial Rate : 096 BPM P-R Int : 134 ms QRS Dur : 082 ms QT Int : 384 ms P-R-T Axes : 046 -78 033 degrees QTc Int : 485 ms Sinus rhythm with marked sinus arrhythmia Left axis deviation RSR' or QR pattern in V1 suggests right ventricular conduction delay Abnormal ECG Confirmed by COTY JACKSON ([id number]) on 11/01/2017 4:46:21 PM Referred By: Confirmed By:COTY JACKSON
[2017-11-01 14:17] VITALS: BP 91/56
[2017-11-01] MEDS ORDERED: PARO-243 PO (14:47)
[2017-11-01] MEDS ORDERED: CLON-303 PO (14:47)
[2017-11-01] MEDS ORDERED: LEV112 PO (14:47)
--- NOTE | 2017-11-01 15:05 | History & Physical ---
History of Present Illness Chief Complaint Chest Pain History of Present Illness The patient was at the cancer center to receive radiation therapy for lung cancer. During her intake process she developed chest discomfort and shortness of breath. A rapid response was called patient was found to have SVT at a rate of 200. The patient was transferred to the emergency department for treatment. The patient did receive a diltiazem drip for rate control. Adenosine was not needed, as the patient self converted. 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 (6) COPD (chronic obstructive pulmonary disease) Status: Chronic (7) ANXIETY DISORDER DUE TO KNOWN PHYSIOLOGICAL CONDITION (8) AGE-RELATED OSTEOPOROSIS W/O CURRENT PATHOLOGICAL FRACTURE Home Meds Reported Medications Biotin (BIOTIN) 1 Mg Tablet, 1 MG PO QDAY 01/06/16 Multivitamin W-Minerals/Gin (SUPER GINSENG MULTIVIT CAP) 1 Each Capsule, 1 EACH PO QDAY, CAPSULE 01/06/16 Ginkgo Biloba Extract (GINKGO BILOBA) 120 Mg Capsule, 120 MG PO QDAY, CAPSULE 01/06/16 Oxybutynin Chloride (OXYBUTYNIN CHLORIDE) 5 Mg Tablet, 5 MG PO QDAY, TAB 01/06/16 Omeprazole (OMEPRAZOLE) 20 Mg Capsule.dr, 1 CAP PO QDAY, CAP 01/06/16 Donepezil Hcl (DONEPEZIL HCL) 5 Mg Tablet, 10 MG PO QDAY, TAB 01/06/16 Dicyclomine Hcl (DICYCLOMINE HCL) 10 Mg Capsule, 10 MG PO QID, CAPSULE 01/06/16 Acetaminophen/Codeine (TYLENOL #3 (OR EQUIV)) 1 Ea Tab, 1 EA PO BID-TID, TAB 11/13/15 Albuterol Sulfate (ACCUNEB) 1.25 Mg/3 Ml Vial.neb, 1.25 MG IH 3-4XD 07/30/13 Sulfasalazine (AZULFIDINE) 500 Mg Tablet, 1000 MG PO QID 01/08/13 Clonazepam (KLONOPIN) 0.5 Mg Tablet, 1 MG PO BID Y 01/08/13 Sertraline Hcl (ZOLOFT) 50 Mg Tablet, 100 MG PO BID 01/08/13 Fluticasone/Salmeterol (ADVAIR 500-50 DISKUS) 1 Each Disk.w.dev, 1 EACH IH BID 01/08/13 Levothyroxine Sodium (LEVOTHYROXINE SODIUM) 150 Mcg Tablet, 75 MCG PO DAILY 01/08/13 Calcium Carbonate/Vitamin D3 (CALCIUM WITH VITAMIN D3 SOFTGL) 1 Each Capsule, 1 EACH PO BIDBS 01/08/13 Alendronate Sodium (FOSAMAX) 70 Mg Tablet, 70 MG PO QWEEKF take weekly on Sundays01/08/13 Allergies: Coded Allergies: cefaclor (Verified Allergy, Unknown, 11/13/15) Hx Smoking: Yes (1/2 to 1 PPD X 56 YRS ) Smoking Status: Current: Every Day Smoker Exposure to Second Hand Smoke?: No Caffeine Intake: Coffee Caffeine/Cups Per Day: 1 pot a day Hx Alcohol Use: No Hx Substance Use Disorder: No Review of Systems All Systems Reviewed/Normal: Yes, Except as Noted Cardiovascular: Chest Pain Respiratory: Shortness of Breath Exam Vital Signs Vital Signs Date Time Temp Pulse Resp B/P (MAP) Pulse Ox O2 Delivery O2 Flow Rate FiO2 11/01/17 14:17 98.1 82 12 91/56 (68) 95 Oxy Mask 6.0 General Appearance: Alert, Awake, No Acute Distress, Afebrile Cardiovascular: Regular Rate and Rhythm Respiratory: No Respiratory Distress, Clear to Auscultation GI: Abd Soft and Non-Tender Extremities: No Edema Psych: Alert & Oriented X3, Appropriate Mood & Affect Medical Decision Making Data Points Result Diagram: 11/01/17 1145 11/01/17 1145 Item Value Date Time Troponin I < 0.012 ng/ml 11/01/17 1145 B-Type Natriuretic Peptide 201 pg/ml H 11/01/17 1145 EKG / Imaging EKG Interpretation Sinus Tachycardia with PAC's Monitor Interpretation: Sinus Tachycardia Imaging Chest x-ray reviewed Pre-Admit Course ED Medications Diltiazem drip at 5ml/hr Medical Record Review: Yes Assessment and Plan Problems: (1) Supraventricular tachycardia Status: Acute Assessment & Plan: She was admitted for SVT. She will continue diltiazem drip at 5mg/hr. Her rate and rhythm seems to be well controlled by Diltiazem. We will try to convert her to oral medication soon for rate control. 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 She has been receiving radiation for two weeks now. She did not receive Radiation today. She would like to try to get her radiation tomorrow at 1130. (3) COPD (chronic obstructive pulmonary disease) Status: Chronic Assessment & Plan: She is on chronic treatment with Advair and continuous oxygen. (4) GENERALIZED ANXIETY DISORDER Status: Chronic Assessment & Plan: She is on chronic treatment with Clonazepam. (5) Hypothyroidism Status: Chronic Assessment & Plan: She is on chronic treatment with Levothyroxine. (6) Acute Crohn's disease Status: Chronic Assessment & Plan: She is on chronic treatment with Bentyl. Venous Thromboembolism Antithrombotics Is Pt On Any Antithrombotics?: Yes Exam Sepsis Risk: No Definite Risk IKE PEDERSON RESEARCH MICROBIOLOGIST Nov 01, 2017 15:05
[2017-11-01] MEDS ORDERED: NS(*) 0.9% 500 ML BAG 500 ML ONE (16:21)
[2017-11-01] MEDS: NICOTINE 14 MG/24 HR PATCH TD SCH (16:23)
[2017-11-01] MEDS: sulfaSALAzine 500 MG TAB PO SCH ×2 (16:24→20:46)
[2017-11-01] MEDS ORDERED: SALMETEROL/FLUTIC 500/50 1 INH INH SCH (18:00)
[2017-11-01 20:43] VITALS: BP 100/60
[2017-11-01] MEDS: ACETAMIN/CODEINE #3 300-30 MG PO PRN (20:46)
[2017-11-01] MEDS: clonazePAM 1 MG TAB PO SCH (20:46)
[2017-11-01] MEDS: DICYCLOMINE HCL 10 MG CAP PO SCH (20:46)
[2017-11-01] MEDS ORDERED: DILTIAZEM CD 120 MG CAPCR PO ONE (22:55)
[2017-11-01] MEDS ORDERED: BENZOCAINE/MENTHOL 1 EACH LOZG PO PRN (22:55)
[2017-11-01 23:01] VITALS: BP 100/56
[2017-11-02 03:10] VITALS: BP 103/67
[2017-11-02] MEDS: ACETAMIN/CODEINE #3 300-30 MG PO PRN (03:17)
[2017-11-02] MEDS ORDERED: LEVOTHYROXINE SOD 0.112 MG TAB PO SCH (06:00)
[2017-11-02 06:27] LABS: PLATELET COUNT, AUTOMATED 201 K/uL (150-450)
[2017-11-02] MEDS ORDERED: DILT120C18 PO (06:50)
[2017-11-02] MEDS ORDERED: DILTIAZEM HCL* 100 MG ADDVIAL 100 MG in NS(*) 0.9% 100 ML ADDVANT BAG 100 ML IV SCH (07:30)
[2017-11-02] MEDS ORDERED: ACETAMIN/CODEINE #3 300-30 MG PO PRN (07:45)
--- NOTE | 2017-11-02 08:01 | Hospitalist Depart ---
Discharge Summary Reason for Hosp/Final Diag: (1) Supraventricular tachycardia Status: Acute Hospital Course & Plan: She was admitted for SVT. She was placed on a diltiazem drip at 5mg/hr initially, but was converted to oral dosing overnight. She will discharge on daily diltiazem. 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 She has been receiving radiation for two weeks now. She will follow up in the cancer center immediately after discharge. (3) COPD (chronic obstructive pulmonary disease) Status: Chronic Hospital Course & Plan: She is on chronic treatment with Advair and continuous oxygen. (4) GENERALIZED ANXIETY DISORDER Status: Chronic Hospital Course & Plan: She is on chronic treatment with Clonazepam. (5) Hypothyroidism Status: Chronic Hospital Course & Plan: She is on chronic treatment with Levothyroxine. (6) Acute Crohn's disease Status: Chronic Hospital Course & Plan: She is on chronic treatment with Bentyl. Departure Latest Vital Signs Vital Signs 11/02/17 11/02/17 03:10 04:08 Temp 97.6 Pulse 85 Resp 20 B/P (MAP) 103/67 (79) Pulse Ox 92 O2 Delivery Nasal Cannula O2 Flow Rate 3.0 Weight (Pounds): 105 Weight (Ounces): 8.0 Result Diagram: 11/02/1734 11/02/17 0534 Condition: Improved Discharge: Home, Self Care Discharge Instructions Home Meds Active Scripts Diltiazem Hcl (DILTIAZEM 24HR CD) 120 Mg Cap.er.24h, 120 MG PO DAILY, #30 TAB Prov:COTY JACKSON DO 11/02/17 Reported Medications Paroxetine Hcl (PAXIL) 20 Mg Tablet, 10 MG PO QDAY, TAB 11/01/17 Clonazepam (CLONAZEPAM) 1 Mg Tablet, 1 MG PO BID, #6 TAB 11/01/17 Levothyroxine Sodium (LEVOTHYROXINE SODIUM) 0.112 Mg Tab, 0.112 MG PO QDAY, TAB 11/01/17 Biotin (BIOTIN) 1 Mg Tablet, 1 MG PO QDAY 01/06/16 Multivitamin W-Minerals/Gin (SUPER GINSENG MULTIVIT CAP) 1 Each Capsule, 1 EACH PO QDAY, CAPSULE 01/06/16 Omeprazole (OMEPRAZOLE) 20 Mg Capsule.dr, 1 CAP PO QDAY, CAP 01/06/16 Dicyclomine Hcl (DICYCLOMINE HCL) 10 Mg Capsule, 10 MG PO TID, CAPSULE 01/06/16 Acetaminophen/Codeine (TYLENOL #3 (OR EQUIV)) 1 Ea Tab, 1 EA PO BID-TID, TAB 11/13/15 Sulfasalazine (AZULFIDINE) 500 Mg Tablet, 500 MG PO QID 01/08/13 Fluticasone/Salmeterol (ADVAIR 500-50 DISKUS) 1 Each Disk.w.dev, 1 EACH IH BID 01/08/13 Calcium Carbonate/Vitamin D3 (CALCIUM WITH VITAMIN D3 SOFTGL) 1 Each Capsule, 1 EACH PO DAILY 01/08/13 Discontinued Reported Medications Ginkgo Biloba Extract (GINKGO BILOBA) 120 Mg Capsule, 120 MG PO QDAY, CAPSULE 01/06/16 Oxybutynin Chloride (OXYBUTYNIN CHLORIDE) 5 Mg Tablet, 5 MG PO QDAY, TAB 01/06/16 Donepezil Hcl (DONEPEZIL HCL) 5 Mg Tablet, 10 MG PO QDAY, TAB 01/06/16 Albuterol Sulfate (ACCUNEB) 1.25 Mg/3 Ml Vial.neb, 1.25 MG IH 3-4XD 07/30/13 Clonazepam (KLONOPIN) 0.5 Mg Tablet, 1 MG PO BID Y 01/08/13 Sertraline Hcl (ZOLOFT) 50 Mg Tablet, 100 MG PO BID 01/08/13 Levothyroxine Sodium (LEVOTHYROXINE SODIUM) 150 Mcg Tablet, 75 MCG PO DAILY 01/08/13 Alendronate Sodium (FOSAMAX) 70 Mg Tablet, 70 MG PO QWEEKF take weekly on Sundays01/08/13 Diet: Regular Activity: As Tolerated Venous Thromboembolism Antithrombotics Is Pt On Any Antithrombotics?: Yes COTY JACKSON DO Nov 02, 2017 08:01
[2017-11-02 08:17] VITALS: BP 85/50
[2017-11-02] MEDS ORDERED: ENOXAPARIN 30 MG/0.3 ML SYR SC SCH (09:00)
[2017-11-02] MEDS ORDERED: PARoxetine HCL 20 MG TAB PO SCH (09:00)
[2017-11-02] MEDS ORDERED: PANTOPRAZOLE SOD 40 MG TABEC PO SCH (09:00)
[2017-11-02] MEDS ORDERED: DILTIAZEM CD 120 MG CAPCR PO SCH (09:00)
[2017-11-02] MEDS: DICYCLOMINE HCL 10 MG CAP PO SCH (09:36)
[2017-11-02] MEDS: sulfaSALAzine 500 MG TAB PO SCH (09:36)
[2017-11-02] MEDS: clonazePAM 1 MG TAB PO SCH (09:36)
[2017-11-02] MEDS: NICOTINE 14 MG/24 HR PATCH TD SCH (09:37)
[2017-11-04] MEDS ORDERED: INFLUENZA VIRUS VAC 0.5 ML SYR IM ONLY ONE (09:00)
== END 2017-11-02 10:30 | disposition home or self-care (01) | DRG 309 ==
LOC: ER 11:49 → MED 13:06
PROVIDERS: ADMIT Family Medicine; ATTEND Family Medicine
DX: I47.1 Supraventricular tachycardia (principal); C34.91 Malignant neoplasm of unspecified part of right bronchus or lung; K50.90 Crohn's disease, unspecified, without complications; F41.1 Generalized anxiety disorder; J44.9 Chronic obstructive pulmonary disease, unspecified; F17.210 Nicotine dependence, cigarettes, uncomplicated; M81.0 Age-related osteoporosis without current pathological fracture; E03.9 Hypothyroidism, unspecified; Z99.81 Dependence on supplemental oxygen; Z90.710 Acquired absence of both cervix and uterus; Z90.49 Acquired absence of other specified parts of digestive tract
CPT/HCPCS: 36415; 71045; 82040; 82247; 82310; 82374; 82435; 82565; 82947; 83880; 84075; 84132; 84155; 84295; 84450; 84460; 84484; 84520; 85025; 85610; 85730; 93005; 96365; 96366; 96375; 99284; J3010; J3490; J7030; J7040; J7050

== ENCOUNTER 2017-11-07 11:49 | Inpatient (IN) | payer MEDICARE ==
[~2017-11-07 11:49] MED LIST changes: +CLON-303 PO; +DILT120C18 PO; +LEV112 PO; +PARO-243 PO
[2017-11-07] MEDS ORDERED: DILTIAZEM 5 MG/ML 5ML IVPUSH IVP ONE (11:55)
[2017-11-07] MEDS ORDERED: DILTIAZEM HCL* 100 MG ADDVIAL 100 MG in NS(*) 0.9% 100 ML ADDVANT BAG 100 ML IV SCH (12:00)
[2017-11-07 12:03] LABS: PLATELET COUNT, AUTOMATED 327 K/uL (150-450)
[2017-11-07] MEDS ORDERED: IOPAMIDOL 76% 75 ML INFUS BTL 75 ML ONE (12:54)
[2017-11-07] MEDS ORDERED: NS 0.9% 150 ML BAG 150 ML ONE (12:55)
--- NOTE | 2017-11-07 13:31 | RADIOLOGY IMAGING REPORT ---
FACILITY: [facility] - [place] PATIENT NAME: Catarina James : 1945 MR: [id number] V: [id number] EXAM DATE: ORDERING PHYSICIAN: TYREE NY TECHNOLOGIST: Location: [facility] - [place] Patient: Catarina James : 1945 Visit/Account:[id number] Date of Sevice: 11/07/2017 Exam type: CHEST PA AND LAT History: dysrythmia Comparison: None. Findings: There is blunting of the right costophrenic angle and patchy airspace consolidation in the right lowe r lobe. There appears to be fluid versus thickening of the major fissure on the right. There is hyp erexpansion of the lung neal. The cardiac silhouette is normal in size. This osteopenia the visua lized bones. IMPRESSION: 1. There is blunting the right costophrenic angle consistent with pleural effusion versus pleural th ickening which appears to involve the major fissure on the right Patchy airspace consolidation in the right lung base consistent with infiltrate, atelectasis or mass lesion. Report Dictated By: Aiyana Go MD at 11/07/2017 1:26 PM Report E-Signed By: Aiyana Go MD at 11/07/2017 1:28 PM WSN:[email or web address]
--- NOTE | 2017-11-07 13:44 | RADIOLOGY IMAGING REPORT ---
FACILITY: [facility] - [place] PATIENT NAME: Catarina James : 1945 MR: [id number] V: [id number] EXAM DATE: ORDERING PHYSICIAN: TYREE NY TECHNOLOGIST: Location: [facility] [place] Patient: Catarina James : 1945 Visit/Account:[id number] Date of Sevice: 11/07/2017 CTA CHEST WW/O CNTR (PULM ANG) HISTORY: Dysrhythmia ADDITIONAL HISTORY: None. TECHNIQUE: CTA chest with intravenous contrast. Axial imaging acquired following administration of IV contrast timed for maximum opacification of the pulmonary arterial vasculature. Slab 3-D MIP nacho nstructed images were also created for further evaluation and interpretation. Reconstruction of the [facility] data set includes multiplanar 2-D in the sagittal and coronal planes and 3-D reconstructed derek nal slab MIP series. 3-D images were created by the technologist. Dose Lowering Technique One of the following dose optimization techniques was utilized in the performance of this exam: Autom ated exposure control; adjustment of the mA and/or kV according to the patient's size; or use of an i terative reconstruction technique. Specific details can be referenced in the facility's radiology C T exam operational policy. CONTRAST: 75 mL [id number] COMPARISON: Two view chest performed today FINDINGS: Lungs/pleura: There is a soft tissue density mass surrounding the bronchovascular bundle to the righ t lower lobe. There is occlusion of the arterial branches to the right lower lobe. A portion of the the bronchial tree to the right lower lobe is severely compressed with collapse of the anterior and central portion of the right lower lobe. There is a small focal area of spiculated consolidation in the posterior aspect superior segment of the right lower lobe measuring 1.3 x 0.8 cm There is a small amount of aerated lung in the superior posterior medial aspects of the right lower lobe. There is a small posterior layering right pleural effusion. Small amount of linear stranding is present in the left lower lobe consistent with scarring versus at electasis. Heart/vessels: As mentioned above the soft tissue density mass surrounding the bronchovascular bundl e to the right lower lobe is occluding the right lower lobe arterial tree. The remainder of the pulm onary arterial tree is opacified bilaterally without evidence of pulmonary emboli. There is a small pericardial effusion. There are mild calcifications in the coronary arteries Mediastinum/lymph nodes: Large right infrahilar mass as described above Visualized upper abdomen: Mild fullness of the incompletely imaged left renal collecting system vers us parapelvic cysts Bones/soft tissues: There is a gentle S-shaped scoliosis of the thoracic spine Additional findings: None IMPRESSION: There is a large soft tissue density mass surrounding the bronchovascular bundle to the right lower l obe with occlusion of the arterial branches to the right lower lobe. A portion of the bronchial tree to the right lower lobe is severely compressed with collapse of the anterior and central portion of this lobe. There is a small focal area spiculation in the posterior aspect of the superior segment of the right lower lobe measuring 1.3 x 0.8 cm. Also noted is a small posterior layering right pleural effusion. These findings are extremely concerning for malignancy. The remainder of the pulmonary arterial tree is well opacified without evidence of pulmonary emboli Small pericardial effusion Report Dictated By: Aiyana Go MD at 11/07/2017 1:28 PM Report E-Signed By: Aiyana Go MD at 11/07/2017 1:40 PM WSN:[email or web address]
[2017-11-07] MEDS ORDERED: NS(*) 0.9% 1000 ML BAG 1,000 ML IV ONE ×2 (13:45→14:15)
--- NOTE | 2017-11-07 14:20 | ER Report ---
History and Physical Time Seen By MD: 11:40 Hx. of Stated Complaint: chest pain and dizziness/fatigue in cancer center before infusion, pt put on telemetry and rate about 200 HPI/ROS CHIEF COMPLAINT: Palpitations HISTORY OF PRESENT ILLNESS patient is a 72-year-old female comes emergency Department today with a complaint of palpitations. Patient was in the cancer center history of metastatic lung CA was getting chemotherapy preparing for radiation when she was noted to have a tachycardia was noted to be in SVT rapid response was initiated I responded the rapid response patient was evaluated and determined to be in SVT. On arrival to the emergency department she converted out of SVT into a rapid rate of 120 with what was apparent either A. fib or A. fib with RVR with some apparent appearance he. Put on a Cardizem drip patient was stating she is having palpitations and felt better on arrival to the emergency department patient denies chest pain nausea vomiting diarrhea fever chills or additional complaints noted REVIEW OF SYSTEMS: Respiratory: No cough, no dyspnea. Cardiovascular: Palpitations without chest pain Gastrointestinal: No vomiting, no abdominal pain. Musculoskeletal: No back pain. Remainder of the 14 system rev: Yes Allergies: Coded Allergies: cefaclor (Verified Allergy, Unknown, 11/07/17) Reviewed Nurses Notes: Yes Old Medical Records Reviewed: Yes Constitutional Vital Sign - Last 24 Hours 11/07/17 11/07/17 11/07/17 11/07/17 11:49 11:50 11:53 11:55 Temp 99.0 Pulse 102 115 Resp 22 22 B/P (MAP) 105/61 (76) 100/61 91/71 (78) Pulse Ox 97 96 O2 Delivery Oxy Mask 11/07/17 11/07/17 11/07/17 11/07/17 12:00 12:04 12:05 12:10 Pulse 90 Resp 21 B/P (MAP) 98/64 (75) 89/62 (71) 104/94 (97) Pulse Ox 97 11/07/17 11/07/17 11/07/17 11/07/17 12:15 12:19 12:20 12:25 Pulse 99 B/P (MAP) 98/53 (68) 99/59 (72) 77/65 (69) Pulse Ox 97 11/07/17 11/07/17 11/07/17 11/07/17 12:30 12:34 12:35 12:40 Pulse 93 99 Resp 21 19 B/P (MAP) 96/62 (73) 87/48 (61) 112/73 (86) Pulse Ox 96 95 11/07/17 11/07/17 11/07/17 11/07/17 12:45 12:50 13:00 13:05 Pulse ??? 97 Resp 16 B/P (MAP) 96/42 (60) 103/59 (74) 79/56 (64) Pulse Ox 96 98 11/07/17 11/07/17 11/07/17 11/07/17 13:10 13:15 13:16 13:20 Pulse 91 ??? Resp 18 B/P (MAP) 96/58 (71) 61/38 (46) 93/62 (72) Pulse Ox 100 95 11/07/17 11/07/17 11/07/17 11/07/17 13:25 13:30 13:35 13:37 Pulse 84 Resp 24 B/P (MAP) 107/53 (71) 98/54 (69) 92/58 (69) Pulse Ox 97 O2 Flow Rate 8.0 11/07/17 14:09 O2 Flow Rate 3.0 Intake and Output 11/07/17 11/07/17 11/08/17 15:00 23:00 07:00 Intake Total 1000 ml Balance 1000 ml Physical Exam General Appearance: The patient is alert, has no immediate need for airway protection and no current signs of toxicity. [ ] Eyes: Pupils equal and round no injection. Respiratory: Chest is non tender, lungs are clear to auscultation. Cardiac: Irregular rate tachycardic rhythm[ ] Gastrointestinal: Abdomen is soft and non tender, no masses, bowel sounds normal. Musculoskeletal: Neck: Neck is supple and non tender. Extremities have full range of motion and are non tender. Skin: No rashes or lesions. [ ] DIFFERENTIAL DIAGNOSIS: After history and physical exam differential diagnosis was considered for SVT A. fib with RVR mild cardial infarction pulmonary emboli infectious etiology Medical Decision Making Data Points Result Diagram: 11/07/17 1145 11/07/17 1145 Laboratory Hematology Test 11/07/17 11:45 11/07/17 12:38 Red Blood Count 3.55 M/uL (4.17-5.56) Mean Corpuscular Volume 112.9 fL (80.0-96.0) Mean Corpuscular Hemoglobin 40.2 pg (26.0-33.0) Mean Corpuscular Hemoglobin Concent 35.6 g/dL (32.0-36.0) Red Cell Distribution Width 17.2 % (11.5-14.5) Mean Platelet Volume 8.1 fL (7.2-11.1) Neutrophils (%) (Auto) 65.6 % (39.4-72.5) Lymphocytes (%) (Auto) 19.6 % (17.6-49.6) Monocytes (%) (Auto) 12.5 % (4.1-12.4) Eosinophils (%) (Auto) 2.0 % (0.4-6.7) Basophils (%) (Auto) 0.3 % (0.3-1.4) Nucleated RBC Relative Count (auto) 0.1 /100WBC Neutrophils # (Auto) 2.4 K/uL (2.0-7.4) Lymphocytes # (Auto) 0.7 K/uL (1.3-3.6) Monocytes # (Auto) 0.5 K/uL (0.3-1.0) Eosinophils # (Auto) 0.1 K/uL (0.0-0.5) Basophils # (Auto) 0.0 K/uL (0.0-0.1) Nucleated RBC Absolute Count (auto) 0.00 K/uL Peripheral Blood Smear Yes Y/N D-Dimer Quantitative (PE/DVT) 1.89 ug/ml (0-0.50) Sodium Level 134 mmol/L (137-145) Potassium Level 3.1 mmol/L (3.5-5.0) Chloride Level 97 mmol/L (98-107) Carbon Dioxide Level 26 mmol/L (22-31) Blood Urea Nitrogen 10 mg/dl (7-18) Creatinine 0.70 mg/dl (0.52-1.04) Glomerular Filtration Rate Calc > 60.0 Random Glucose 154 mg/dl (75-110) Calcium Level 8.4 mg/dl (8.4-10.2) Total Bilirubin 0.3 mg/dl (0.2-1.3) Aspartate Amino Transf (AST/SGOT) 24 U/L (0-35) Alanine Aminotransferase (ALT/SGPT) 20 U/L (0-56) Alkaline Phosphatase 91 U/L (0-126) Troponin I < 0.012 ng/ml B-Type Natriuretic Peptide 99 pg/ml (0-100) Total Protein 6.7 gm/dl (6.3-8.2) Albumin 3.3 g/dl (3.5-5.0) Urine Color Straw Urine Clarity Clear Urine pH 6.0 pH (4.8-9.5) Urine Specific [place] 1.001 Urine Protein Negative mg/dL (NEGATIVE) Urine Glucose (UA) Negative mg/dL (NEGATIVE) Urine Ketones Negative mg/dL (NEGATIVE) Urine Blood Negative (NEGATIVE) Urine Nitrite Negative (NEGATIVE) Urine Bilirubin Negative (NEGATIVE) Urine Urobilinogen Negative mg/dL (0.2-1.9) Urine Leukocyte Esterase Negative (NEGATIVE) Urine RBC <1 /HPF (0-2/HPF) Urine WBC 1 /HPF (0-5/HPF) Urine Squamous Epithelial Cells None /LPF (</=FEW) Urine Bacteria Few /HPF (NONE-FEW) Urine Mucus None /HPF (NONE-FEW) Chemistry Test 11/07/17 11:45 11/07/17 12:38 White Blood Count 3.6 k/uL (4.5-11.0) Red Blood Count 3.55 M/uL (4.17-5.56) Hemoglobin 14.3 g/dL (12.0-16.0) Hematocrit 40.1 % (34.0-47.0) Mean Corpuscular Volume 112.9 fL (80.0-96.0) Mean Corpuscular Hemoglobin 40.2 pg (26.0-33.0) Mean Corpuscular Hemoglobin Concent 35.6 g/dL (32.0-36.0) Red Cell Distribution Width 17.2 % (11.5-14.5) Platelet Count 327 K/uL (150-450) Mean Platelet Volume 8.1 fL (7.2-11.1) Neutrophils (%) (Auto) 65.6 % (39.4-72.5) Lymphocytes (%) (Auto) 19.6 % (17.6-49.6) Monocytes (%) (Auto) 12.5 % (4.1-12.4) Eosinophils (%) (Auto) 2.0 % (0.4-6.7) Basophils (%) (Auto) 0.3 % (0.3-1.4) Nucleated RBC Relative Count (auto) 0.1 /100WBC Neutrophils # (Auto) 2.4 K/uL (2.0-7.4) Lymphocytes # (Auto) 0.7 K/uL (1.3-3.6) Monocytes # (Auto) 0.5 K/uL (0.3-1.0) Eosinophils # (Auto) 0.1 K/uL (0.0-0.5) Basophils # (Auto) 0.0 K/uL (0.0-0.1) Nucleated RBC Absolute Count (auto) 0.00 K/uL Peripheral Blood Smear Yes Y/N D-Dimer Quantitative (PE/DVT) 1.89 ug/ml (0-0.50) Glomerular Filtration Rate Calc > 60.0 Calcium Level 8.4 mg/dl (8.4-10.2) Total Bilirubin 0.3 mg/dl (0.2-1.3) Aspartate Amino Transf (AST/SGOT) 24 U/L (0-35) Alanine Aminotransferase (ALT/SGPT) 20 U/L (0-56) Alkaline Phosphatase 91 U/L (0-126) Troponin I < 0.012 ng/ml B-Type Natriuretic Peptide 99 pg/ml (0-100) Total Protein 6.7 gm/dl (6.3-8.2) Albumin 3.3 g/dl (3.5-5.0) Urine Color Straw Urine Clarity Clear Urine pH 6.0 pH (4.8-9.5) Urine Specific [place] 1.001 Urine Protein Negative mg/dL (NEGATIVE) Urine Glucose (UA) Negative mg/dL (NEGATIVE) Urine Ketones Negative mg/dL (NEGATIVE) Urine Blood Negative (NEGATIVE) Urine Nitrite Negative (NEGATIVE) Urine Bilirubin Negative (NEGATIVE) Urine Urobilinogen Negative mg/dL (0.2-1.9) Urine Leukocyte Esterase Negative (NEGATIVE) Urine RBC <1 /HPF (0-2/HPF) Urine WBC 1 /HPF (0-5/HPF) Urine Squamous Epithelial Cells None /LPF (</=FEW) Urine Bacteria Few /HPF (NONE-FEW) Urine Mucus None /HPF (NONE-FEW) Coagulation Test 11/07/17 11:45 D-Dimer Quantitative (PE/DVT) 1.89 ug/ml Urinalysis Test 11/07/17 12:38 Urine Color Straw Urine Clarity Clear Urine pH 6.0 pH (4.8-9.5) Urine Specific [place] 1.001 Urine Protein Negative mg/dL (NEGATIVE) Urine Glucose (UA) Negative mg/dL (NEGATIVE) Urine Ketones Negative mg/dL (NEGATIVE) Urine Blood Negative (NEGATIVE) Urine Nitrite Negative (NEGATIVE) Urine Bilirubin Negative (NEGATIVE) Urine Urobilinogen Negative mg/dL (0.2-1.9) Urine Leukocyte Esterase Negative (NEGATIVE) Urine RBC <1 /HPF (0-2/HPF) Urine WBC 1 /HPF (0-5/HPF) Urine Squamous Epithelial Cells None /LPF (</=FEW) Urine Bacteria Few /HPF (NONE-FEW) Urine Mucus None /HPF (NONE-FEW) ED Course/Re-evaluation ED Course ED clinical course medical decision making this 72-year-old female who arrived in the emergency department on a rapid response with SVT converted on her own without intervention put her on a Cardizem drip she's responded well current rate is 86 with a 94% oxygen saturation with a blood pressure 90/52 she did receive a fluid bolus patient feels significantly better a CT scan shows a metastatic lung CA bronchial vascular involvement apparently is improved from prior patient will be admitted to the hospital today for cardiac dysrhythmia failing outpatient management Decision to Disposition Date: Nov 07, 2017 Decision to Disposition Time: 14:19 Depart Departure Latest Vital Signs Vital Signs Date Time Temp Pulse Resp B/P (MAP) Pulse Ox O2 Delivery O2 Flow Rate FiO2 11/07/17 14:09 3.0 11/07/17 13:35 92/58 (69) 11/07/17 13:30 84 24 97 11/07/17 11:53 99.0 Oxy Mask Impression: Primary Impression: Dysrhythmia Condition: Improved Disposition: Admitted from ER Referrals: SULTANA HOUSER DO (PCP) TYREE [place] MD Nov 07, 2017 14:20
[2017-11-07] MEDS ORDERED: DILT120C28 (14:33)
[2017-11-07] MEDS ORDERED: ACET-1718 (14:33)
[2017-11-07] MEDS ORDERED: DICY10CA11 (14:33)
[2017-11-07] MEDS ORDERED: FLUT1DIS28 (14:33)
[2017-11-07] MEDS ORDERED: PARO10TA80 (14:33)
[2017-11-07] MEDS ORDERED: LEV112 (14:33)
[2017-11-07] MEDS ORDERED: OXYC-373 (14:33)
[2017-11-07] MEDS ORDERED: CLON-303 (14:33)
[2017-11-07] MEDS ORDERED: OMEP-125 (14:33)
[2017-11-07 15:24] VITALS: BP 106/65
[2017-11-07] MEDS ORDERED: clonazePAM 1 MG TAB PO PRN (16:30)
[2017-11-07] MEDS ORDERED: PANTOPRAZOLE SOD 40 MG TABEC PO ONE (16:30)
[2017-11-07] MEDS ORDERED: ACETAMINOPHEN 325 MG TAB PO PRN (17:00)
[2017-11-07] MEDS ORDERED: DILTIAZEM CD 120 MG CAPCR PO ONE (17:00)
[2017-11-07] MEDS: POTASSIUM CHL 20 MEQ TABCR PO SCH (17:09)
[2017-11-07] MEDS: DICYCLOMINE HCL 10 MG CAP PO SCH ×2 (17:09→20:24)
[2017-11-07] MEDS: PAROXETINE HCL 10 MG TABLET PO SCH (17:09)
--- NOTE | 2017-11-07 17:10 | History & Physical ---
History of Present Illness Chief Complaint Palpitations History of Present Illness Mrs. James is a 72-year-old female with PMH of COPD, Crohn's Disease s/p multiple abdominal surgeries, Lung Cancer diagnosed in 07/2017 receiving Chemo/ radiation therapy presented to the emergency Department today with a complaint of palpitations. Patient was in the cancer center for metastatic lung CA and was getting chemotherapy preparing for radiation when she was noted to have a tachycardia and she was noted to be in SVT. Rapid response was initiated by ER- MD. Patient was evaluated and determined to be in SVT. On arrival to the emergency department patient denied chest pain nausea vomiting diarrhea fever chills or additional complaints. She converted to A. fib with RVR. She received Cardizem drip in the ER and she responded well. I discussed the case with the ER-MD and admitted the patient for further evaluation and management. She is currently afebrile and hemodynamically stable on Cardizem Drip History Home Meds Reported Medications Omeprazole (OMEPRAZOLE) 20 Mg Capsule.dr 11/07/17 Levothyroxine Sodium (LEVOTHYROXINE SODIUM) 0.112 Mg Tab 11/07/17 Clonazepam (CLONAZEPAM) 1 Mg Tablet 11/07/17 Paroxetine Hcl (PAROXETINE HCL) 10 Mg Tablet 11/07/17 Oxycodone Hcl/Acetaminophen (OXYCODONE-ACETAMINOPHEN 5-325) 1 Each Tablet 11/07/17 Fluticasone/Salmeterol (ADVAIR 250-50 DISKUS) 1 Each Disk.w.dev 11/07/17 Dicyclomine Hcl (DICYCLOMINE HCL) 10 Mg Capsule 11/07/17 Acetaminophen With Codeine # 3 (ACETAMINOPHEN-COD #3 TABLET) 1 Each Tablet 11/07/17 Diltiazem Hcl (DILTIAZEM 24HR ER) 120 Mg Cap.er.24h, 120 11/07/17 Allergies: Coded Allergies: cefaclor (Verified Allergy, Unknown, 11/07/17) Patient History: FH: COPD (chronic obstructive pulmonary disease) BROTHER OR SISTER FH: alcoholism BROTHER OR SISTER FH: cirrhosis BROTHER OR SISTER FH: gastric ulcer FATHER OTHER INFECTIOUS AND PARASITIC DISEASES MOTHER Hx Smoking: Yes Smoking Status: Current: Every Day Smoker Exposure to Second Hand Smoke?: Yes Caffeine Intake: Coffee Caffeine/Cups Per Day: 12 Hx Alcohol Use: No Review of Systems Constitutional: Weight Loss, No Fever, No Weight Gain, No Chills Neurological: No Confusion, No Weakness, No Dizziness Cardiovascular: Palpitations, No Chest Pain Respiratory: No Shortness of Breath, No Cough, No Wheezing Gastrointestinal: No Nausea, No Vomiting, No Diarrhea, No Constipation, No Abdominal Pain Genitourinary: No Dysuria, No Hematuria Musculoskeletal: No Pain, No Sprain, No Strain Psychiatric: Anxiety, No Depression Exam Vital Signs Vital Signs Date Time Temp Pulse Resp B/P (MAP) Pulse Ox O2 Delivery O2 Flow Rate FiO2 11/07/17 15:28 94 Nasal Cannula 3.0 11/07/17 15:24 97.3 79 16 106/65 (79) General Appearance: Alert, Awake, No Acute Distress, Afebrile Neuro: No Gross deficits Eyes: PERRLA ENT: Normal Neck: No Masses Cardiovascular: Normal Rhythm & Peripheral Pulses, No Edema, No JVD Respiratory: No Respiratory Distress GI: Abd Soft and Non-Tender Extremities: Soft and Non Tender Integumentary: Skin Intact without Lesion / Mass Psych: Alert & Oriented X3 Medical Decision Making Data Points Result Diagram: 11/07/17 1145 11/07/17 1145 EKG / Imaging Imaging reviewed Pre-Admit Course Medical Record Review: Yes Assessment and Plan Problems: (1) PAROXYSMAL ATRIAL FIBRILLATION Status: Acute Assessment & Plan: I will continue her Cardizem drip for now. Her HR is 70-80' s and I will start her on Cardizem CD 120mg po now and an hour later I will taper the cardizem drip I will get TSH level before starting her Synthroid dose, Low TSH could be a trigger to her A.fib or low K level I will place her on mechanic foreman (2) HYPOKALEMIA Status: Acute Assessment & Plan: I will start IVF NS with 40meq KCL @ 80ml/h and I will also use KCL 20meq po bid I will check her Mag level I will check her BMP in am (3) Lung cancer Status: Chronic Assessment & Plan: She is currently getting radiation therapy at cancer center and cancer center was informed I will use Lovenox 40mg daily for DVT prophylaxis (4) Crohn's disease Status: Chronic Assessment & Plan: I will continue her Crohn's medications Central Venous Access Medical Necessity for Access: Hemodynamic Monitoring Condition Guarded Time Spent on Plan of Care: > 30 min Copies to: SULTANA HOUSER DO Venous Thromboembolism VTE Risk Physician Assess for VTE Risk: Yes Patient's VTE Risk: High VTE Diagnostic Test 2 Days Prior to Admit: No Antithrombotics Is Pt On Any Antithrombotics?: No Exam Sepsis Risk: No Definite Risk Problem Qualifiers (1) Lung cancer: Laterality: right MARIANO CUADRA MD Nov 07, 2017 17:10
[2017-11-07] MEDS ORDERED: ACETAMIN/CODEINE #3 300-30 MG PO PRN (17:35)
[2017-11-07] MEDS ORDERED: KCL 2 MEQ/ML 20 MEQ/10 ML VIAL 40 MEQ in NS(*) 0.9% 1000 ML BAG 1,000 ML IV SCH (18:00)
[2017-11-07] MEDS: SALMETEROL/FLUTIC 250/50 1 INH INH SCH (18:23)
[2017-11-07 19:43] VITALS: BP 101/51
[2017-11-07 22:16] VITALS: BP 124/65
[2017-11-07 23:54] VITALS: BP 107/58
[2017-11-08] MEDS: SALMETEROL/FLUTIC 250/50 1 INH INH SCH (05:23)
[2017-11-08 05:37] VITALS: BP 93/55
[2017-11-08] MEDS ORDERED: LEVOTHYROXINE SOD 0.112 MG TAB PO SCH (06:00)
[2017-11-08 07:29] VITALS: BP 91/56
[2017-11-08] MEDS ORDERED: MAGNESIUM SUL/D5W* 1 GM/100 ML 100 ML IVPB ONE (08:00)
[2017-11-08] MEDS: DICYCLOMINE HCL 10 MG CAP PO SCH (08:22)
[2017-11-08] MEDS: POTASSIUM CHL 20 MEQ TABCR PO SCH (08:24)
[2017-11-08] MEDS: PAROXETINE HCL 10 MG TABLET PO SCH (08:24)
[2017-11-08] MEDS ORDERED: ENOXAPARIN 40 MG/0.4ML SYR SC SCH (09:00)
[2017-11-08] MEDS ORDERED: NICOTINE 14 MG/24 HR PATCH TD SCH (09:00)
[2017-11-08] MEDS ORDERED: DILTIAZEM CD 120 MG CAPCR PO SCH (09:00)
[2017-11-08] MEDS ORDERED: POTA20TA94 PO (09:29)
--- NOTE | 2017-11-08 09:37 | Hospitalist Depart ---
Discharge Summary Reason for Hosp/Final Diag: (1) PAROXYSMAL ATRIAL FIBRILLATION Status: Acute Hospital Course & Plan: She did present with a recurrent episode of supraventricular tachycardia. She was again placed on a diltiazem drip and she returned to sinus rhythm. She was converted back to oral diltiazem last night, and her rate has remained controlled. We have ordered a Holter monitor to determine if she is having these dysrhythmia at home. She should remain on the oral diltiazem upon discharge. (2) HYPOKALEMIA Status: Acute Hospital Course & Plan: Resolved with supplementation. (3) Lung cancer Status: Chronic Hospital Course & Plan: She is currently getting radiation therapy at cancer center. Departure Latest Vital Signs Vital Signs 11/08/17 11/08/17 07:29 08:19 Temp 97.7 Pulse 72 Resp 12 B/P (MAP) 91/56 (68) Pulse Ox 93 O2 Delivery Nasal Cannula O2 Flow Rate 3.0 Weight (Pounds): 100 Result Diagram: 11/07/17 1145 11/08/17 0506 Condition: Improved Discharge: Home, Self Care Discharge Instructions Home Meds Active Scripts Potassium Chloride (POTASSIUM CHLORIDE) 20 Meq Tab.er.prt, 20 MEQ PO BIDBS, #60 TAB Prov:COTY JACKSON DO 11/08/17 Reported Medications Omeprazole (OMEPRAZOLE) 20 Mg Capsule. 11/07/17 Levothyroxine Sodium (LEVOTHYROXINE SODIUM) 0.112 Mg Tab 11/07/17 Clonazepam (CLONAZEPAM) 1 Mg Tablet 11/07/17 Paroxetine Hcl (PAROXETINE HCL) 10 Mg Tablet 11/07/17 Oxycodone Hcl/Acetaminophen (OXYCODONE-ACETAMINOPHEN 5-325) 1 Each Tablet 11/07/17 Fluticasone/Salmeterol (ADVAIR 250-50 DISKUS) 1 Each Disk.w.dev 11/07/17 Dicyclomine Hcl (DICYCLOMINE HCL) 10 Mg Capsule 11/07/17 Acetaminophen With Codeine # 3 (ACETAMINOPHEN-COD #3 TABLET) 1 Each Tablet 11/07/17 Diltiazem Hcl (DILTIAZEM 24HR ER) 120 Mg Cap.er.24h, 120 11/07/17 Diet: Regular Activity: As Tolerated Copies to: SULTANA HOUSER DO Venous Thromboembolism Antithrombotics Is Pt On Any Antithrombotics?: No Problem Qualifiers (1) Lung cancer: Laterality: right COTY JACKSON DO Nov 08, 2017 09:37
== END 2017-11-08 11:00 | disposition home or self-care (01) | DRG 309 ==
LOC: ER 11:51 → MED 14:31 → MERGE 14:31
PROVIDERS: ADMIT Specialist; ATTEND Specialist
DX: I48.0 Paroxysmal atrial fibrillation (principal); C78.01 Secondary malignant neoplasm of right lung; K50.90 Crohn's disease, unspecified, without complications; E87.6 Hypokalemia; F17.210 Nicotine dependence, cigarettes, uncomplicated; J44.9 Chronic obstructive pulmonary disease, unspecified; Z92.3 Personal history of irradiation; Z88.8 Allergy status to other drugs, medicaments and biological substances; Z92.21 Personal history of antineoplastic chemotherapy; Z90.710 Acquired absence of both cervix and uterus
CPT/HCPCS: 36415; 71046; 71275; 81001; 82040; 82247; 82310; 82374; 82435; 82565; 82947; 83735; 83880; 84075; 84132; 84155; 84295; 84443; 84450; 84460; 84484; 84520; 85025; 85379; 87040; 87070; 93005; 94640; 96361; 96365; 96366; 96375; 99285; A4353; J1650; J3475; J3480; J3490; J7030; J7050; Q9967

== ENCOUNTER → 2017-11-08 | Outpatient (CLI) | payer MEDICARE ==
[~2017-11-08] MED LIST changes: +ACET-1718; +CLON-303; +DICY10CA11; +DILT120C28; +FLUT1DIS28; +IPRA3AMP21 IH; +LEV112; +OMEP-125; +OXYC-373; +OXYC-865 PO; +PARO10TA80; +POTA20TA94 PO; +SULF-198 PO
--- NOTE | 2017-11-11 16:47 | RT HOLTER TEST ---
FACILITY: [facility] PATIENT NAME: BONNIE MCKINLEY : [id number] MR: [id number] V: [id number] EXAM DATE: ORDERING PHYSICIAN: COTY JACKSON TECHNOLOGIST: OLIVE Hook-up date: 2017-11-08 12:43:00 Duration: 22:54:00 Test Indications: SVT Medications: N/A 541968 QRS complexes 5958 Ventricular ectopics which represent 5 % of total QRS comp. 199 Supraventricular ectopics which represent <1 % of total QRS comp. * Paced QRS complexes which represent % of total QRS comp. VENTRICULAR ECTOPY 5928 Isolated 208 Bigeminal Cycles 15 Couplets 0 Runs 0 Beats in Runs * Beats LONGEST at * BPM at :: -- * Beats FASTEST at * BPM at :: -- SUPRAVENTRICULAR ECTOPY 153 Isolated 4 Couplets 7 Runs 38 Beats in Runs 9 Beats LONGEST at 150 BPM at 19:46:53 2017-11-08 4 Beats FASTEST at 154 BPM at 03:16:46 2017-11-09 HEART RATES 67 MIN at 17:28:33 2017-11-08 85 AVG 156 MAX at 19:46:55 2017-11-08 LONGEST RR 1.152 secs at 16:52:59 2017-11-08 S-T LEVELS Channel 1 -12.800 mm MIN at 12:43:00 2017-11-08 -12.800 mm MAX at 12:43:00 2017-11-08 Channel 3 -12.800 mm MIN at 12:43:00 2017-11-08 -12.800 mm MAX at 12:43:00 2017-11-08 There were no reported symptoms during the test. The patient had 7 short runs (about 5 beats at 125- 154 beats per minute) of supraventricular ectopy. Also, there were occasional ventricular ectopic beats. Confirmed by MELIZA ROD ([id number]) on 11/11/2017 2:25:14 PM Referred By: Overread By: MELIZA ROD
== END ==
LOC: MERGE 12:22 → RESP 12:22
PROVIDERS: ATTEND Family Medicine
DX: I49.9 Cardiac arrhythmia, unspecified (principal)
CPT/HCPCS: 93225; 93226

== ENCOUNTER 2017-11-14 11:06 | Outpatient (RCR) | payer MEDICARE ==
--- NOTE | 2017-11-07 11:23 | EKG ---
FACILITY: [facility] [place] PATIENT NAME: BONNIE MCKINLEY : [id number] MR: [id number] V: [id number] EXAM DATE: ORDERING PHYSICIAN: TYREE [place] TECHNOLOGIST: Test Reason : SVT Blood Pressure : / mmHG Vent. Rate : 207 BPM Atrial Rate : 208 BPM P-R Int : 000 ms QRS Dur : 068 ms QT Int : 206 ms P-R-T Axes : 000 -04 -13 degrees QTc Int : 382 ms Supraventricular tachycardia RSR' or QR pattern in V1 suggests right ventricular conduction delay Possible Anterior infarct , age undetermined ST and T wave abnormality, consider inferolateral ischemia Abnormal ECG No previous ECGs available Confirmed by COTY JACKSON ([id number]) on 11/08/2017 2:16:50 PM Referred By: ANANT Confirmed By:COTY JACKSON
--- NOTE | 2017-11-13 12:51 | EKG ---
FACILITY: [facility] PATIENT NAME: BONNIE MCKINLEY : [id number] MR: [id number] V: [id number] EXAM DATE: ORDERING PHYSICIAN: GAEL PRITCHETT TECHNOLOGIST: PRECIOUS Parker Reason : CP Blood Pressure : / mmHG Vent. Rate : 098 BPM Atrial Rate : 098 BPM P-R Int : 138 ms QRS Dur : 078 ms QT Int : 378 ms P-R-T Axes : 071 127 072 degrees QTc Int : 482 ms Sinus rhythm with premature supraventricular complexes with frequent premature ventricular complexes Possible Left atrial enlargement Nonspecific interventricular conduction delay Abnormal ECG Confirmed by LYN LYNNE ([id number]) on 11/14/2017 5:41:10 AM Referred By: Confirmed By:LYN LYNNE
[~2017-11-14 11:06] MED LIST changes: -IPRA3AMP21 IH; -OXYC-865 PO; -SULF-198 PO
--- NOTE | 2017-11-14 12:06 | EKG ---
FACILITY: [facility] PATIENT NAME: BONNIE MCKINLEY : [id number] MR: [id number] V: [id number] EXAM DATE: ORDERING PHYSICIAN: CLARIBEL SUH TECHNOLOGIST: PRECIOUS Parker Reason : Blood Pressure : / mmHG Vent. Rate : 110 BPM Atrial Rate : 110 BPM P-R Int : 134 ms QRS Dur : 078 ms QT Int : 336 ms P-R-T Axes : 065 040 058 degrees QTc Int : 454 ms Sinus tachycardia with premature atrial complexes Possible Left atrial enlargement No ST-T abnormalities When compared with ECG of 13-NOV-2017 12:43, premature ventricular complexes are no longer present Confirmed by MELIZA ROD ([id number]) on 11/14/2017 5:46:12 PM Referred By: Confirmed By:MELIZA ROD
[2017-11-15] MEDS ORDERED: SULF-198 PO (14:30)
[2017-11-15] MEDS ORDERED: IPRA3AMP21 IH (14:30)
[2017-11-15] MEDS ORDERED: OXYC-865 PO (16:00)
== END 2018-01-06 ==
LOC: RAON 11:06
PROVIDERS: ATTEND Radiology Radiation Oncology
DX: Z51.0 Encounter for antineoplastic radiation therapy (principal); C34.31 Malignant neoplasm of lower lobe, right bronchus or lung; R53.83 Other fatigue; R06.02 Shortness of breath; R05 Cough; M54.5 Low back pain; K50.90 Crohn's disease, unspecified, without complications; M81.0 Age-related osteoporosis without current pathological fracture; E03.9 Hypothyroidism, unspecified; J44.9 Chronic obstructive pulmonary disease, unspecified; Z79.899 Other long term (current) drug therapy; F17.210 Nicotine dependence, cigarettes, uncomplicated; I47.1 Supraventricular tachycardia; R94.31 Abnormal electrocardiogram [ECG] [EKG]
CPT/HCPCS: 77280; 77290; 77336; 77386; 93005; G0463; 77300; 77301; 77338; 93226; 99203

== ENCOUNTER 2017-11-15 11:26 | Emergency (ER) | payer MEDICARE ==
--- NOTE | 2017-11-15 11:38 | ER Report ---
History and Physical Time Seen By MD: 11:37 Hx. of Stated Complaint: LAST RADIATION TREATMENT YESTERDAY. WAS SPITTING UP A LITTLE BLOOD YESTERDAY BEFORE TREATMENT. THIS MORNING STARTED SPITTING UP BLOOD, IT HASN'T STOPPED. VERY SOB FOR THE LAST COUPLE HOURS HPI/ROS CHIEF COMPLAINT: Hemoptysis HISTORY OF PRESENT ILLNESS: 72-year-old female patient presents to emergency room with complaint of hemoptysis. Patient states that she had a little bit of coughing up blood yesterday prior to radiation, patient had worsening cough no blood today. She states that she's been coughing up significant amounts of blood , she feels like she's been having work harder to breathe. Patient states she was having some chest pain, back pain, arm pain last night. She denies having any fevers or chills. Daughter states the patient has been very weak for the last week, states that she is on had much energy. Patient states she's not had any changes of her medications and she was discharged from the hospital last week. REVIEW OF SYSTEMS: Respiratory: As noted above Cardiovascular: As noted above Gastrointestinal: No vomiting, no abdominal pain. Musculoskeletal: No back pain. Allergies: Coded Allergies: cefaclor (Verified Allergy, Unknown, 11/15/17) Home Meds Active Scripts Oxycodone Hcl/Acetaminophen (PERCOCET 5-325 MG TABLET) 1 Each Tablet, 1 EACH PO Q4-6H Y for PAIN, #20 TAB Prov:ERVIN HENRIQUEZ 11/15/17 Ipratropium/Albuterol Sulfate (IPRAT-ALBUT 0.5-3(2.5) MG/3 ML) 3 Ml Ampul.neb, 3 ML IH Q4-6H Y for SHORTNESS OF BREATH, #20 VIAL Prov:ERVIN HENRIQUEZ 11/15/17 Sulfamethoxazole/Trimet 800-160 Mg Tab (BACTRIM DS TABLET) 1 Each Tablet, 1 TAB PO Q12H, #14 TAB Prov:ERVIN HENRIQUEZ 11/15/17 Potassium Chloride (POTASSIUM CHLORIDE) 20 Meq Tab.er.prt, 20 MEQ PO BIDBS, #60 TAB Prov:COTY JACKSON DO 11/08/17 Diltiazem Hcl (DILTIAZEM 24HR CD) 120 Mg Cap.er.24h, 120 MG PO DAILY, #30 TAB Prov:COTY JACKSON DO 11/02/17 Reported Medications Omeprazole (OMEPRAZOLE) 20 Mg Capsule. 11/07/17 Levothyroxine Sodium (LEVOTHYROXINE SODIUM) 0.112 Mg Tab 11/07/17 Clonazepam (CLONAZEPAM) 1 Mg Tablet 11/07/17 Paroxetine Hcl (PAROXETINE HCL) 10 Mg Tablet 11/07/17 Oxycodone Hcl/Acetaminophen (OXYCODONE-ACETAMINOPHEN 5-325) 1 Each Tablet 11/07/17 Fluticasone/Salmeterol (ADVAIR 250-50 DISKUS) 1 Each Disk.w.dev 11/07/17 Dicyclomine Hcl (DICYCLOMINE HCL) 10 Mg Capsule 11/07/17 Acetaminophen With Codeine # 3 (ACETAMINOPHEN-COD #3 TABLET) 1 Each Tablet 11/07/17 Diltiazem Hcl (DILTIAZEM 24HR ER) 120 Mg Cap.er.24h, 120 11/07/17 Paroxetine Hcl (PAXIL) 20 Mg Tablet, 10 MG PO QDAY, TAB 11/01/17 Clonazepam (CLONAZEPAM) 1 Mg Tablet, 1 MG PO BID, #6 TAB 11/01/17 Levothyroxine Sodium (LEVOTHYROXINE SODIUM) 0.112 Mg Tab, 0.112 MG PO QDAY, TAB 11/01/17 Biotin (BIOTIN) 1 Mg Tablet, 1 MG PO QDAY 01/06/16 Multivitamin W-Minerals/Gin (SUPER GINSENG MULTIVIT CAP) 1 Each Capsule, 1 EACH PO QDAY, CAPSULE 01/06/16 Omeprazole (OMEPRAZOLE) 20 Mg Capsule.dr, 1 CAP PO QDAY, CAP 01/06/16 Dicyclomine Hcl (DICYCLOMINE HCL) 10 Mg Capsule, 10 MG PO TID, CAPSULE 01/06/16 Acetaminophen/Codeine (TYLENOL #3 (OR EQUIV)) 1 Ea Tab, 1 EA PO BID-TID, TAB 11/13/15 Sulfasalazine (AZULFIDINE) 500 Mg Tablet, 500 MG PO QID 01/08/13 Fluticasone/Salmeterol (ADVAIR 500-50 DISKUS) 1 Each Disk.w.dev, 1 EACH IH BID 01/08/13 Calcium Carbonate/Vitamin D3 (CALCIUM WITH VITAMIN D3 SOFTGL) 1 Each Capsule, 1 EACH PO DAILY 01/08/13 Past Medical/Surgical History Patient has a past medical history of migraines, SVT, lung cancer, emphysema, Crohn's disease, reflux, arthritis, hypothyroidism, depression. Patient had a surgical history of cholecystectomy, bowel surgery, hysterectomy, surgery to wrists, both knees. Reviewed Nurses Notes: Yes Hx Smoking: Yes Smoking Status: Current: Every Day Smoker Exposure to Second Hand Smoke?: Yes Hx Substance Use Disorder: No Hx Alcohol Use: No Constitutional Vital Sign - Last 24 Hours 11/15/17 11/15/17 11/15/17 11/15/17 11:29 11:31 11:34 11:41 Temp 98.7 Pulse 113 112 Resp 30 20 B/P (MAP) 130/82 130/82 (98) 97/78 (84) Pulse Ox 91 94 O2 Delivery Nasal Cannula 11/15/17 11/15/17 11/15/17 11/15/17 11:41 11:50 11:50 11:56 Pulse 102 111 Resp 20 20 Pulse Ox 93 O2 Delivery Nasal Cannula O2 Flow Rate 2.0 2.5 11/15/17 11/15/17 11/15/17 11/15/17 11:56 12:00 12:11 12:26 Pulse 94 118 112 Resp 25 38 30 B/P (MAP) 116/64 (81) Pulse Ox 96 91 93 11/15/17 11/15/17 11/15/17 11/15/17 12:30 12:41 12:46 13:00 Pulse ? B/P (MAP) 117/64 (81) 133/81 (98) 11/15/17 11/15/17 11/15/17 11/15/17 13:01 13:16 13:30 13:31 Pulse 100 93 94 Resp 13 B/P (MAP) 119/71 (87) Pulse Ox 96 94 93 11/15/17 11/15/17 11/15/17 11/15/17 13:46 14:00 14:01 14:16 Pulse 93 93 92 Resp 24 20 22 B/P (MAP) 124/73 (90) Pulse Ox 93 93 94 11/15/17 11/15/17 11/15/17 11/15/17 14:30 14:31 14:35 14:40 Pulse 99 92 Resp 19 B/P (MAP) 104/70 (81) 98/67 (77) Pulse Ox 81 11/15/17 11/15/17 11/15/17 11/15/17 14:52 14:55 15:00 15:10 Pulse 97 92 B/P (MAP) 113/107 (109) 105/70 (82) Pulse Ox 79 92 11/15/17 11/15/17 11/15/17 11/15/17 15:25 15:30 15:45 16:00 Pulse 84 88 88 ??? B/P (MAP) 77/66 (70) 50/41 (44) Pulse Ox 94 92 92 Physical Exam General Appearance: The patient is alert, has no immediate need for airway protection and no current signs of toxicity. Respiratory: Chest is non tender, lungs are coarse to auscultation. Cardiac: regular rate and rhythm Gastrointestinal: Abdomen is soft and non tender, no masses, bowel sounds normal. Musculoskeletal: Neck: Neck is supple and non tender. Extremities have full range of motion and are non tender. Skin: No rashes or lesions. DIFFERENTIAL DIAGNOSIS: After history and physical exam differential diagnosis was considered for pneumonia, pulmonary emboli, OR, bronchitis, influenza. Medical Decision Making Data Points Result Diagram: 11/15/17 1153 11/15/17 1153 Laboratory Hematology Test 11/15/17 11:53 11/15/17 12:04 11/15/17 12:54 Red Blood Count 3.60 M/uL (4.17-5.56) Mean Corpuscular Volume 112.8 fL (80.0-96.0) Mean Corpuscular Hemoglobin 39.7 pg (26.0-33.0) Mean Corpuscular Hemoglobin Concent 35.2 g/dL (32.0-36.0) Red Cell Distribution Width 17.2 % (11.5-14.5) Mean Platelet Volume 8.0 fL (7.2-11.1) Neutrophils (%) (Auto) 74.3 % (39.4-72.5) Lymphocytes (%) (Auto) 8.3 % (17.6-49.6) Monocytes (%) (Auto) 17.1 % (4.1-12.4) Eosinophils (%) (Auto) 0.1 % (0.4-6.7) Basophils (%) (Auto) 0.2 % (0.3-1.4) Nucleated RBC Relative Count (auto) 0.0 /100WBC Neutrophils # (Auto) 4.7 K/uL (2.0-7.4) Lymphocytes # (Auto) 0.5 K/uL (1.3-3.6) Monocytes # (Auto) 1.1 K/uL (0.3-1.0) Eosinophils # (Auto) 0.0 K/uL (0.0-0.5) Basophils # (Auto) 0.0 K/uL (0.0-0.1) Nucleated RBC Absolute Count (auto) 0.00 K/uL Peripheral Blood Smear Yes Y/N Sodium Level 135 mmol/L (137-145) Potassium Level 4.0 mmol/L (3.5-5.0) Chloride Level 95 mmol/L (98-107) Carbon Dioxide Level 27 mmol/L (22-31) Blood Urea Nitrogen 11 mg/dl (7-18) Creatinine 0.80 mg/dl (0.52-1.04) Glomerular Filtration Rate Calc > 60.0 Random Glucose 128 mg/dl (75-110) Calcium Level 8.7 mg/dl (8.4-10.2) Total Bilirubin 0.5 mg/dl (0.2-1.3) Aspartate Amino Transf (AST/SGOT) 17 U/L (0-35) Alanine Aminotransferase (ALT/SGPT) 18 U/L (0-56) Alkaline Phosphatase 99 U/L (0-126) Troponin I < 0.012 ng/ml B-Type Natriuretic Peptide 37 pg/ml (0-100) Total Protein 7.7 gm/dl (6.3-8.2) Albumin 3.8 g/dl (3.5-5.0) Influenza Virus Type A (PCR) Negative (NEGATIVE) Influenza Virus Type B (PCR) Negative (NEGATIVE) Urine Color Yellow Urine Clarity Slightly-cloudy Urine pH 5.0 pH (4.8-9.5) Urine Specific [place] 1.010 Urine Protein Negative mg/dL (NEGATIVE) Urine Glucose (UA) Negative mg/dL (NEGATIVE) Urine Ketones Negative mg/dL (NEGATIVE) Urine Blood Negative (NEGATIVE) Urine Nitrite Negative (NEGATIVE) Urine Bilirubin Negative (NEGATIVE) Urine Urobilinogen Negative mg/dL (0.2-1.9) Urine Leukocyte Esterase Moderate (NEGATIVE) Urine RBC 1 /HPF (0-2/HPF) Urine WBC 75 /HPF (0-5/HPF) Urine Squamous Epithelial Cells Few /LPF (</=FEW) Urine Bacteria Many /HPF (NONE-FEW) Urine Mucus Few /HPF (NONE-FEW) Chemistry Test 11/15/17 11:53 11/15/17 12:04 11/15/17 12:54 White Blood Count 6.3 k/uL (4.5-11.0) Red Blood Count 3.60 M/uL (4.17-5.56) Hemoglobin 14.3 g/dL (12.0-16.0) Hematocrit 40.6 % (34.0-47.0) Mean Corpuscular Volume 112.8 fL (80.0-96.0) Mean Corpuscular Hemoglobin 39.7 pg (26.0-33.0) Mean Corpuscular Hemoglobin Concent 35.2 g/dL (32.0-36.0) Red Cell Distribution Width 17.2 % (11.5-14.5) Platelet Count 300 K/uL (150-450) Mean Platelet Volume 8.0 fL (7.2-11.1) Neutrophils (%) (Auto) 74.3 % (39.4-72.5) Lymphocytes (%) (Auto) 8.3 % (17.6-49.6) Monocytes (%) (Auto) 17.1 % (4.1-12.4) Eosinophils (%) (Auto) 0.1 % (0.4-6.7) Basophils (%) (Auto) 0.2 % (0.3-1.4) Nucleated RBC Relative Count (auto) 0.0 /100WBC Neutrophils # (Auto) 4.7 K/uL (2.0-7.4) Lymphocytes # (Auto) 0.5 K/uL (1.3-3.6) Monocytes # (Auto) 1.1 K/uL (0.3-1.0) Eosinophils # (Auto) 0.0 K/uL (0.0-0.5) Basophils # (Auto) 0.0 K/uL (0.0-0.1) Nucleated RBC Absolute Count (auto) 0.00 K/uL Peripheral Blood Smear Yes Y/N Glomerular Filtration Rate Calc > 60.0 Calcium Level 8.7 mg/dl (8.4-10.2) Total Bilirubin 0.5 mg/dl (0.2-1.3) Aspartate Amino Transf (AST/SGOT) 17 U/L (0-35) Alanine Aminotransferase (ALT/SGPT) 18 U/L (0-56) Alkaline Phosphatase 99 U/L (0-126) Troponin I < 0.012 ng/ml B-Type Natriuretic Peptide 37 pg/ml (0-100) Total Protein 7.7 gm/dl (6.3-8.2) Albumin 3.8 g/dl (3.5-5.0) Influenza Virus Type A (PCR) Negative (NEGATIVE) Influenza Virus Type B (PCR) Negative (NEGATIVE) Urine Color Yellow Urine Clarity Slightly-cloudy Urine pH 5.0 pH (4.8-9.5) Urine Specific [place] 1.010 Urine Protein Negative mg/dL (NEGATIVE) Urine Glucose (UA) Negative mg/dL (NEGATIVE) Urine Ketones Negative mg/dL (NEGATIVE) Urine Blood Negative (NEGATIVE) Urine Nitrite Negative (NEGATIVE) Urine Bilirubin Negative (NEGATIVE) Urine Urobilinogen Negative mg/dL (0.2-1.9) Urine Leukocyte Esterase Moderate (NEGATIVE) Urine RBC 1 /HPF (0-2/HPF) Urine WBC 75 /HPF (0-5/HPF) Urine Squamous Epithelial Cells Few /LPF (</=FEW) Urine Bacteria Many /HPF (NONE-FEW) Urine Mucus Few /HPF (NONE-FEW) Urinalysis Test 11/15/17 12:54 Urine Color Yellow Urine Clarity Slightly-cloudy Urine pH 5.0 pH (4.8-9.5) Urine Specific [place] 1.010 Urine Protein Negative mg/dL (NEGATIVE) Urine Glucose (UA) Negative mg/dL (NEGATIVE) Urine Ketones Negative mg/dL (NEGATIVE) Urine Blood Negative (NEGATIVE) Urine Nitrite Negative (NEGATIVE) Urine Bilirubin Negative (NEGATIVE) Urine Urobilinogen Negative mg/dL (0.2-1.9) Urine Leukocyte Esterase Moderate (NEGATIVE) Urine RBC 1 /HPF (0-2/HPF) Urine WBC 75 /HPF (0-5/HPF) Urine Squamous Epithelial Cells Few /LPF (</=FEW) Urine Bacteria Many /HPF (NONE-FEW) Urine Mucus Few /HPF (NONE-FEW) EKG/Imaging EKG Interpretation 12 lead EKG: Rhythm: Sinus tachycardia with PAC, ventricular rate of 104 bpm [place]: normal QRS: normal ST segments: normal Imaging EXAMINATION: CT CHEST PULMONARY ANGIOGRAM COMPARISON: 11/07/2017 and earlier. HISTORY: coughing up blood. Lung cancer. PROCEDURE: Pulmonary arterial phase imaging of the chest with 75 mL intravenous Isovue 370. Reconstruction of the source data set includes multiplanar 2D in the sagittal and coronal planes, and 3D reconstructed coronal slab MIP series. One of the following dose optimization techniques was utilized in the performance of this exam: Automated exposure control; adjustment of the mA and/ or kV according to the patient's size; or use of an iterative reconstruction technique. Specific details can be referenced in the facility's radiology CT exam operational policy. FINDINGS: There is good opacification of pulmonary arterial system. Similar to the prior study there is an ill-defined infiltrative process in the right infrahilar lower lobe with occlusion of the right lower lobe pulmonary arteries and partial occlusion of the right lower lobe airways. The mass likely measures at least 3 cm in maximal dimension although precise measurement is difficult due to the poor differentiation of the mass from regions of surrounding postobstructive volume loss and consolidation. Moderate-sized right pleural effusion has increased in volume since 11/07/2017 and there is also significantly increased postobstructive consolidation throughout the right lower lobe. Mild to moderate apical predominant emphysema. No other consolidative or nodular process is identified. No pneumothorax or left -sided pleural effusion. The pulmonary arterial system is otherwise patent with no evidence of an acute pulmonary artery filling defect. Main pulmonary artery size is within normal limits. Cardiac chamber size is within normal limits. Unchanged trace pericardial effusion. Minimal coronary calcifications. No thoracic aortic aneurysm. Numerous mildly enlarged mediastinal lymph nodes are nonspecific and unchanged. No evidence of acute disease in the visualized upper abdomen. No acute osseous abnormality. IMPRESSION: 1. Right infrahilar infiltrative mass with associated obstruction of the right lower lobe bronchovascular bundle is grossly unchanged. 2. Increased right pleural effusion and right lower lobe postobstructive consolidation and volume loss. Correlation with any clinical evidence of a superimposed acute pneumonia is recommended. 3. No acute pulmonary embolism. Results were discussed with ERVIN HENRIQUEZ at 11/15/2017 1:19 PM. Report Dictated By: Eloy Keating MD at 11/15/2017 1:00 PM Report E-Signed By: Eloy Keating MD at 11/15/2017 1:21 PM ED Course/Re-evaluation ED Course Patient was admitted to in exam room, history and physical were obtained. Differential diagnoses were considered. On examination patient had wheezing in the lungs, however she was satting well on 3 L. A CBC, CMP, troponin, EKG, CT pulmonary angiogram were done. The CBC, CMP were unremarkable. Troponin was negative, EKG showed sinus tachycardia with PACs. CT pulmonary angiogram showed moderate pleural effusion, no obvious pneumonias. Urinalysis did show 75 white blood cells per high per field with a moderate leukocyte esterase. I discussed the findings with the patient. I believe that she is having hemoptysis as a result of the tumor. I believe the fatigue is likely caused by the urinary tract infection. Urine culture was ordered on the urine. We will go ahead and treat her with Bactrim. We will change her pain medication to Percocet, as it seemed to improve her pain here in the emergency room. We will also give her a prescription of DuoNeb as it seemed to help with her wheezing. Patient will be discharged home. She is to follow-up with Dr. Vanegas to discuss options about draining her pleural effusion. I would also like her to follow-up with Dr. Colon, oncologist, to discuss options for her pleural effusion related to her cancer. I discussed this with the patient as well as her daughter and they verbalized understanding and agreement with plan. Decision to Disposition Date: Nov 15, 2017 Decision to Disposition Time: 14:35 Depart Departure Latest Vital Signs Vital Signs Date Time Temp Pulse Resp B/P (MAP) Pulse Ox O2 Delivery O2 Flow Rate FiO2 11/15/17 16:00 ??? 50/41 (44) 11/15/17 15:45 92 11/15/17 14:31 19 11/15/17 11:50 Nasal Cannula 2.5 11/15/17 11:29 98.7 Impression: Primary Impression: UTI (urinary tract infection) Additional Impressions: Pleural effusion Wheezing Condition: Improved Disposition: HOME OR SELF-CARE Referrals: SULTANA HOUSER DO (PCP) RADHA VANEGAS MD,CLARIBEL SEYMOUR New Scripts Oxycodone Hcl/Acetaminophen (PERCOCET 5-325 MG TABLET) 1 Each Tablet 1 EACH PO Q4-6H Y for PAIN, #20 TAB Prov: ERVIN HENRIQUEZ [employer] 11/15/17 Ipratropium/Albuterol Sulfate (IPRAT-ALBUT 0.5-3(2.5) MG/3 ML) 3 Ml Ampul.neb 3 ML IH Q4-6H Y for SHORTNESS OF BREATH, #20 VIAL Prov: ERVIN HENRIQUEZ [employer] 11/15/17 Sulfamethoxazole/Trimet 800-160 Mg Tab (BACTRIM DS TABLET) 1 Each Tablet 1 TAB PO Q12H, #14 TAB Prov: ERVIN HENRIQUEZ [facility] 11/15/17 Departure Forms: ER Transition Record, Home Oxygen, Nebulizer RX, Home Oxygen Company Chosen by Patient: [employer] Medical Equipment-Oxygen: Nebulizer Reason for Use/Diagnosis: Hilar mass, wheezing Start Date of the Order: Nov 15, 2017 Route of Administration (if applicable): Other Duration Home O2 Required: 99 Duration Units: Months Room Air Oxygen Saturation: 86 ER Prescribing Physician's Name: Ervintammy Henriquez NPI Numbers for Local ER MDs: Bob [id number] Medications Reconciliation, Patient Portal Information Patient Instructions: Urinary Tract Infection in Women (ED) Additional Instructions: Get plenty of rest. Increase fluid intake. Take the antibiotics as directed. Due to the fluid in your lung I would like you to follow up with Dr. Vanegas, general surgeon, on Sunday (11/19/17) at 10:30 a.m. to discuss Thoracentisis. I would also like you to follow up with your oncologist on 11/29/17 at 4:00 p.m. Return to the ER if condition worsens; ie shortness of breath, increasing fatigue. Follow up with your primary care provider next week to make sure that the UTI is clearing up. Please call your oxygen company to have them bring you a Nebulizer machine. The paper work that they need is in your discharge packet. Problem Qualifiers Primary Impression: UTI (urinary tract infection) Urinary tract infection type: acute cystitis Hematuria presence: without hematuria Qualified Codes: N30.00 - Acute cystitis without hematuria ERVIN HENRIQUEZ ZACK Nov 15, 2017 11:38
[2017-11-15] MEDS ORDERED: NS(*) 0.9% 1000 ML BAG 1,000 ML IV ONE (11:45)
[2017-11-15] MEDS ORDERED: ALBUTEROL/IPRATROPIUM 3 ML NEB NEB ONE (11:45)
--- NOTE | 2017-11-15 11:49 | EKG ---
FACILITY: [facility] PATIENT NAME: BONNIE MCKINLEY : [id number] MR: [id number] V: [id number] EXAM DATE: ORDERING PHYSICIAN: GINNY HENRIQUEZ TECHNOLOGIST: JEYSON Test Reason : CP Blood Pressure : / mmHG Vent. Rate : 104 BPM Atrial Rate : 104 BPM P-R Int : 132 ms QRS Dur : 080 ms QT Int : 354 ms P-R-T Axes : 040 -23 050 degrees QTc Int : 465 ms Sinus tachycardia with premature atrial complexes Otherwise normal ECG When compared with ECG of 14-NOV-2017 11:27, No significant change was found Confirmed by ANUSHKA WHITE ([id number]) on 11/15/2017 2:35:16 PM Referred By: DANI Confirmed By:ANUSHKA WHITE
[2017-11-15 12:05] LABS: PLATELET COUNT, AUTOMATED 300 K/uL (150-450)
[2017-11-15] MEDS ORDERED: IOPAMIDOL 76% 75 ML INFUS BTL 75 ML ONE (12:38)
[2017-11-15] MEDS ORDERED: NS 0.9% 150 ML BAG 150 ML ONE (12:38)
--- NOTE | 2017-11-15 13:26 | RADIOLOGY IMAGING REPORT ---
FACILITY: [facility] PATIENT NAME: Catarina James : 1945 MR: [id number] V: [id number] EXAM DATE: ORDERING PHYSICIAN: GINNY HENRIQUEZ TECHNOLOGIST: [place] [facility] [place]arina James : 1945 Visit/Account:[id number] Date of Sevice: 11/15/2017 EXAMINATION: CT CHEST PULMONARY ANGIOGRAM COMPARISON: 11/07/2017 and earlier. HISTORY: coughing up blood. Lung cancer. PROCEDURE: Pulmonary arterial phase imaging of the chest with 75 mL intravenous Isovue 370. Reconstru ction of the source data set includes multiplanar 2D in the sagittal and coronal planes, and 3D recon structed coronal slab MIP series. One of the following dose optimization techniques was utilized in the performance of this exam: Autom ated exposure control; adjustment of the mA and/or kV according to the patient's size; or use of an i terative reconstruction technique. Specific details can be referenced in the facility's radiology C T exam operational policy. FINDINGS: There is good opacification of pulmonary arterial system. Similar to the prior study there is an ill-defined infiltrative process in the right infrahilar lower lobe with occlusion of the right lower lobe pulmonary arteries and partial occlusion of the right lo wer lobe airways. The mass likely measures at least 3 cm in maximal dimension although precise measur ement is difficult due to the poor differentiation of the mass from regions of surrounding postobstru ctive volume loss and consolidation. Moderate-sized right pleural effusion has increased in volume since 11/07/2017 and there is also signi ficantly increased postobstructive consolidation throughout the right lower lobe. Mild to moderate ap ical predominant emphysema. No other consolidative or nodular process is identified. No pneumothorax or left-sided pleural effusion. The pulmonary arterial system is otherwise patent with no evidence of an acute pulmonary artery filli ng defect. Main pulmonary artery size is within normal limits. Cardiac chamber size is within normal limits. Unchanged trace pericardial effusion. Minimal coronary calcifications. No thoracic aortic aneurysm. Numerous mildly enlarged mediastinal lymph nodes are non specific and unchanged. No evidence of acute disease in the visualized upper abdomen. No acute osseous abnormality. IMPRESSION: 1. Right infrahilar infiltrative mass with associated obstruction of the right lower lobe bronchovasc ular bundle is grossly unchanged. 2. Increased right pleural effusion and right lower lobe postobstructive consolidation and volume los s. Correlation with any clinical evidence of a superimposed acute pneumonia is recommended. 3. No acute pulmonary embolism. Results were discussed with GINNY HENRIQUEZ at 11/15/2017 1:19 PM. Report Dictated By: Eloy Keating MD at 11/15/2017 1:00 PM Report E-Signed By: Eloy Keating MD at 11/15/2017 1:21 PM WSN:[id number]
[2017-11-15] MEDS ORDERED: IPRA3AMP21 IH (14:30)
[2017-11-15] MEDS ORDERED: SULF-198 PO (14:30)
[2017-11-15 16:00] VITALS: BP 50/41
[2017-11-15] MEDS ORDERED: OXYC-865 PO (16:00)
== END 2017-11-15 16:57 | disposition home or self-care (01) ==
LOC: ER 11:31
DX: N30.00 Acute cystitis without hematuria (principal); J90 Pleural effusion, not elsewhere classified; R06.2 Wheezing
CPT/HCPCS: 71275; 81001; 83880; 84484; 85025; 87040; 87088; 87186; 87502; 93005; 94640; 99284; A9270; J7030; J7620; Q9967; 82040; 82247; 82310; 82374; 82435; 82565; 82947; 84075; 84132; 84155; 84295; 84450; 84460; 84520; 96360

== ENCOUNTER → 2017-11-20 | Outpatient (CLI) | payer MEDICARE ==
[~2017-11-20] MED LIST changes: +APAP/HYDROCODONE 325/5 TAB PO ONE; +IPRA3AMP21 IH; +OXYC-865 PO; +SULF-198 PO
[2017-11-20 13:15] VITALS: BP 80/49
--- NOTE | 2017-11-20 13:53 | Post Operative Progress Note ---
Post Operative Progress Note Date: Nov 20, 2017 Time: 13:52 Surgeon: bella Anesthesia: local Pre-Op Diagnosis: right pleural effusion Post-Op Diagnosis: same Procedure(s): right thoracentesis Specimen Removed:(May be N/A): 900 cc blood tinged fluid Complications: port cxr pending RADHA WESTBROOK MD Nov 20, 2017 13:53
--- NOTE | 2017-11-20 14:42 | RADIOLOGY IMAGING REPORT ---
[place] [facility] [place] NAME: Catarina James : 1945 MR: [id number] V: [id number] EXAM DATE: ORDERING PHYSICIAN: RADHA WESTBROOK [place]CHN[place]IST: [place] [facility] [place] : 1945 Visit/Account:[id number] Date of Sevice: 11/20/2017 Exam type: CHEST SINGLE AP History: thoracentesis Comparison: CTA of the chest November 15, 2017. Findings: There is been a marked reduction in the right pleural effusion when compared to the most recent CT. Coarse interstitial infiltrate in the right lower lobe appears similar to the prior CT. There is als o a wedge-shaped dense airspace consolidation in the medial right lower lobe also present on the prio r CT. No definite pneumothorax or mediastinal shift is seen.. The left lung is well aerated. The c ardiac silhouette is normal. IMPRESSION: 1. Marked reduction in the right pleural effusion when compared to the most recent CT of November 15 18 Coarse interstitial infiltrate and additional wedge-shaped consolidation in the right lower lobe appe ars similar to the most recent CT. No definite pneumothorax seen Report Dictated By: Aiyana Go MD at 11/20/2017 2:35 PM Report E-Signed By: Aiyana Go MD at 11/20/2017 2:37 PM WSN:[id number]
--- NOTE | 2017-11-21 17:28 | PROCEDURE NOTE ---
EVENT DATE: November 20, 2017 SURGEON: Silvino Vanegas MD ANESTHESIA: Local. PREOPERATIVE DIAGNOSIS Right pleural effusion. POSTOPERATIVE DIAGNOSIS Right pleural effusion. PROCEDURE PERFORMED Right thoracentesis. DESCRIPTION OF PROCEDURE Patient was placed in the sitting position. Her posterior chest was prepped and draped in a sterile fashion. Skin was anesthetized with 1% Xylocaine. A ivette was made in the skin with a #11 blade. Thoracentesis needle was advanced just above the rib. Good flow was returned. We then tried to advance the catheter a little more, and then we could not get flow. We tried repositioning a few times, but eventually had to make a small ivette adjacent to this and re- enter at that spot. We were able to thread the catheter into position. At that point, we got 900 mL of blood-tinged fluid. The flow stopped. Catheter was removed. Op-Site was placed. Patient had quite a bit of discomfort post procedure. She was given a Lortab. Her vital signs stayed pretty good. Her saturations remained over 90, pulse in the mid 100s. Portable chest x-ray showed the effusion to be improved, and no pneumothorax. [facility]
== END ==
LOC: SPU 13:26
PROVIDERS: ATTEND Surgery
DX: J90 Pleural effusion, not elsewhere classified (principal)
CPT/HCPCS: 32554; 71045; 93005; A9270

== ENCOUNTER 2017-11-29 15:50 | Outpatient (RCR) | payer MEDICARE, OTHER ==
[2017-09-12 14:34] VITALS: BP 132/82
--- NOTE | 2017-09-13 04:41 | ONCOLOGY FOLLOW UP NOTE ---
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 She has undergone a bowel resection in the past for her Crohn's disease. She is on multiple medications. She was seen in the emergency department on August 31, 2017 with reports of feeling poorly. Per the record, she had seen her primary care doctor for concern for pneumonia. Although she had reportedly started to feel a bit better after antibiotics, she had become progressively more weak and short of breath. She has a very long history of smoking, having started when she was 17 years old. She has known oxygen-dependent COPD, but she does not always reliably wear her oxygen at home. She has smoked anywhere between a half pack to a pack a day historically. While the patient was in the emergency department, she had a CT angiogram of the chest performed. This revealed no evidence of PE, but there was consolidation in the right lower lobe with a small right pleural effusion, thought possibly to represent pneumonia. There was also, however, a right infrahilar mass that was potentially causing postobstructive pneumonitis. She was also noted to have mild cardiomegaly. The patient reports that hospitalization had been considered, but because there was not a way to have a biopsy performed of this lung mass, the decision was made to have her go home and have expedited follow up here. The patient continues to have shortness of breath and weakness. She does have a cough. She continues to smoke. She is unsure about hemoptysis with her limited vision. Her loved one who is here with her today remains quite concerned about her overall condition. The patient reports ongoing aches and pains, which have been present for some time. PAST MEDICAL HISTORY 1. Long-term smoking. 2. oxygen-dependent COPD. 3. Osteoporosis. 4. Reported history of anxiety. 5. The patient is legally blind due to unknown condition diagnosed per her report in the s. PAST SURGICAL HISTORY 1. Status post some type of bowel resection due to Crohn's disease. 2. She is status post hysterectomy. 3. She is status post cholecystectomy. CURRENT MEDICATIONS 1. Advair Diskus. 2. Albuterol. 3. Antivert. 4. Aricept. 5. Clonazepam. 6. Dicyclomine. 7. Levothyroxine. 8. Omeprazole. 9. Oxybutynin. 10. Paxil. 11. Prolia. 12. Spiriva. 13. Sulfasalazine. 14. Tylenol with codeine. ALLERGIES KEFLEX. SOCIAL HISTORY The patient smokes about a half a pack to a full pack a day, and she has done so since the age of 17. She is a nondrinker. There is no history of illicit drug use. She is a . FAMILY HISTORY There is a history of breast cancer in her sister, who accompanies her to this visit. VITAL SIGNS Temperature 97.5, blood pressure 132/82, heart rate 74, respirations 16, oxygen saturation is 93% on 4 liters. Weight is 47.4 kg. PHYSICAL EXAMINATION GENERAL: Patient is alert and oriented in x 3 in no apparent distress, sitting in exam room chair. She is quite thin and appears somewhat frail. She is interactive and pleasant. HEENT: Exam reveals anicteric sclerae and no significant oropharyngeal lesions. LUNGS: Exam reveals fairly course breath sounds bilaterally, but good air movement with no wheezing. HEART: Exam reveals regular rate and rhythm. NEUROLOGICAL: Exam is grossly nonfocal, although her gait is slow and somewhat antalgic. EXTREMITIES: Exam reveals some clubbing, but no cyanosis and no edema. LABORATORY DATA Laboratory studies are reviewed per the [facility] record. IMAGING Please see history of present illness. ASSESSMENT AND PLAN Right lung mass, long history of smoking. I had a good visit with Catarina and her sister today. We spent a good deal of time discussing her current symptoms , and what is seen to be as a recent deterioration of her overall wellbeing. She had an oxygen saturation in the high 70's when she approached the clinic today, not wearing oxygen. I have recommended that she be on oxygen at home to maintain an oxygen saturation of about 90%. We will help with this titration today. She does not have a significant amount of new pain, but she has lost weight, and her performance status is not particularly good. We discussed the findings on her CT scan performed in the emergency department. This is indeed quite concerning for a primary lung malignancy. Given central location, would consider squamous cell versus small cell lung cancer to be most likely. She has not yet had a biopsy. Unfortunately this will not be able to be performed in [place]. For this reason, I have recommended that her case be brought before [facility] Conference in [place]. Hopefully we can add her case on for tomorrow morning. I would anticipate that we could get a meaningful biopsy by way of bronchoscopy/EBUS. I will be able to review her situation with pulmonology at conference tomorrow. Because there is such a high suspicion for primary lung malignancy, I have also recommended that the patient undergo a CT PET scan in [place], and hopefully we can arrange for these to be done on the same day. We discussed the rationale for having a CT PET scan done. I would want to see her back for follow up as soon as a diagnosis is made. Hopefully this can be in the next week or so. We discussed the possibility of having her follow up with my colleague, Dr. Brewer, who may be here at a period of time that I am not when this expedited followup can happen. The patient had several additional questions today. We have answered all of her questions to her satisfaction. Thank you very much, Az Guru, for allowing me to take part in the care of this pleasant patient. Please do not hesitate to call with questions or concerns. I spent a total of 50 minutes of time face to face with the patient and her sister today. 45 minutes of this were spent in direct counseling and coordination of care. EDGAR
[2017-09-26 14:33] VITALS: BP 113/64
--- NOTE | 2017-09-26 22:32 | ONCOLOGY FOLLOW UP NOTE ---
EVENT DATE: September 26, 2017 REASON FOR FOLLOWUP Newly diagnosed squamous cell carcinoma of lung. CHIEF COMPLAINT Shortness of breath, cough, fatigue. INTERIM HISTORY Catarina returns to clinic for a follow-up visit today. She is accompanied by her sister. Since our last visit, she has undergone a CT/PET scan, as well as bronchoscopy/EBUS with biopsies. She reports that the scan and bronchoscopy were quite easy to tolerate, and she has had no post procedure complications or new symptoms. She reports no fever. She does feel fatigued. She does report some shortness of breath with ambulation, as well as occasional modestly productive cough. She has had no hemoptysis. She has had some ongoing low back pain. REVIEW OF SYSTEMS Otherwise negative, and all systems were reviewed. ONCOLOGY HISTORY 1. Squamous cell carcinoma of the right lung. a. August 31, 2017, CT angiogram of chest: No evidence of PE, but consolidation was noted in right lower lobe with a small right pleural effusion , thought possibly to represent pneumonia. Additional concerns for right infrahilar mass, potentially causing post obstructive pneumonitis. b. September 17, 2017, CT/PET scan: Hypermetabolic right central and inferior hilar mass encasing the bronchus intermedius and the central airways of the right middle lobe and lower lobes; hypermetabolic superior right hilar adenopathy consistent with metastatic disease; equivocal thickening of the colonic wall likely secondary to its decompressed state and artifactual, but with diffuse FDG uptake. This is likely physiologic. c. April 21, 2017: Bronchoscopy with EBUS and transbronchial needle aspiration of right perihilar region. Pathology reveals evidence of moderately differentiated squamous cell carcinoma compatible with lung origin. PAST MEDICAL HISTORY 1. Long-term smoking. 2. oxygen-dependent COPD. 3. Osteoporosis. 4. Reported history of anxiety. 5. The patient is legally blind due to unknown condition diagnosed per her report in the 1970's. PAST SURGICAL HISTORY 1. Status post some type of bowel resection due to Crohn's disease. 2. She is status post hysterectomy. 3. She is status post cholecystectomy. CURRENT MEDICATIONS 1. Advair Diskus. 2. Albuterol. 3. Antivert. 4. Aricept. 5. Clonazepam. 6. Dicyclomine. 7. Levothyroxine. 8. Omeprazole. 9. Oxybutynin. 10. Paxil. 11. Prolia. 12. Spiriva. 13. Sulfasalazine. 14. Tylenol with codeine. ALLERGIES KEFLEX. SOCIAL HISTORY The patient smokes about a half a pack to a full pack a day, and she has done so since the age of 17. She is a nondrinker. There is no history of illicit drug use. She is a . FAMILY HISTORY There is a history of breast cancer in her sister, who accompanies her to this visit. VITAL SIGNS Temperature 97.6, blood pressure 113/64, pulse 132, respirations 16, oxygen saturation is 80% on room airs. Weight is 84.3 kg. PHYSICAL EXAMINATION GENERAL: Patient is alert and oriented times three in no apparent distress, sitting in exam room chair. She is interactive and pleasant, but seemingly with some cognitive delay. HEENT: Exam reveals anicteric sclerae. NEUROLOGIC: Exam is otherwise grossly nonfocal. EXTREMITIES: Exam reveals clubbing, but no cyanosis or erythema. SKIN: Cursory skin exam was unremarkable for concerning rash or lesion. IMAGING Please see oncology history. PATHOLOGY Please see oncology history. ASSESSMENT AND PLAN Squamous cell carcinoma of right lung, newly diagnosed. I had a good discussion with Catarina and her sister today. We spent time reviewing the results of her recent CT/PET scan, as well as pathology results after her undergoing bronchoscopy with EBUS biopsies. We discussed the diagnosis of squamous cell carcinoma from this centrally located mass. We discussed staging as it relates to prognosis and treatment decision making. We also spent a good deal of time discussing her overall physical status and lack of reserve in this regard. We discussed some of the cognitive issues that have been present lately , as well as her "dizzy spells." I have recommended that the patient go for an MRI of the brain to complete her staging. At this point, her final staging is unknown, but this does not appear to be a resectable lesion by way of anatomical location, her oxygen dependent COPD, and her otherwise generally frail state. We discussed today that after we reviewed the results of her upcoming MRI, presuming this is negative for metastatic disease, our first objective will be to determine whether or not she is truly interested in receiving systemic and/or radiation therapy. As discussed, knowing that surgery is not an option for her, I am also concerned about the idea of combined modality therapy with chemotherapy and radiation. I am uncertain at this point whether even dose reduced chemotherapy would be tolerated. I think that chemoradiation would be rather profoundly difficult. The patient expresses understanding, as does her sister. We could potentially consider palliative radiation to the primary tumor. After further discussion, we feel that chemotherapy itself would be very unlikely. We moved on to discuss other options, to include treatments that could be guided by additional studies to be done on her recent tissue biopsies. I have strongly recommended that we send tissue for PD-L1, as immunotherapy with pembrolizumab, for example, could be considered if her PD-L1 level is high enough. I am not certain whether this would get approved, as she does not yet have evidence of metastatic disease. We would see if we could work with insurance and/or pharmaceutical company to make this possible, however. We discussed that this treatment without radiation therapy would be a palliative maneuver. We also discussed that given the location of this tumor, it would be highly likely that she would become quite symptomatic in the coming weeks to months. The other option, if she were to chose not receive any type of active anti-cancer therapy, would be for her to get hospice involved with her care. We spent some time discussing hospice services today, as well. We will work for additional studies to be performed on tumor tissue, and I will be back in touch with her with the results once they are available. I would like to visit with her again during my next trip to [facility]. I will also be back in touch with her with the results of her brain MRI. I spent a total of 45 minutes of time face to face with the patient and her sister today, and 40 minutes of this was spent in direct counseling and coordination of care. EDGAR
--- NOTE | 2017-11-21 07:17 | EKG ---
FACILITY: [facility] [place] PATIENT NAME: BONNIE MCKINLEY : [id number] MR: [id number] V: [id number] EXAM DATE: ORDERING PHYSICIAN: CLARIBEL SUH TECHNOLOGIST: Test Reason : preop Blood Pressure : / mmHG Vent. Rate : 110 BPM Atrial Rate : 110 BPM P-R Int : 128 ms QRS Dur : 078 ms QT Int : 328 ms P-R-T Axes : 053 019 045 degrees QTc Int : 443 ms Sinus tachycardia with premature atrial complexes Possible Left atrial enlargement RSR' or QR pattern in V1 suggests right ventricular conduction delay Borderline ECG No previous ECGs available Confirmed by COTY JACKSON ([id number]) on 11/21/2017 12:37:20 PM Referred By: Confirmed By:COTY JACKSON
--- NOTE | 2017-11-21 14:33 | OPERATIVE REPORT 1 ---
EVENT DATE: November 20, 2017 SURGEON: Silvino Vanegas MD ANESTHESIA: Local. PREOPERATIVE DIAGNOSIS Right pleural effusion. POSTOPERATIVE DIAGNOSIS Right pleural effusion. PROCEDURE PERFORMED Right thoracentesis. DESCRIPTION OF PROCEDURE The patient was placed in the sitting position. Her posterior chest was prepped and draped in sterile fashion. Skin was anesthetized with 1% Xylocaine. Miles was made in the skin with a #11 blade, and thoracentesis needle was advanced just above the rib. Good flow was returned. We then tried to advance the catheter a little more, and then we could not get flow. We tried repositioning a few times, but eventually had to make a small miles adjacent to this and reenter at that spot. We were able to thread the catheter into position. At that point, we got 900 mL of blood-tinged fluid. The flow stopped. Catheter was removed. OpSite was placed. Patient had quite a bit of discomfort post procedure. She was given a Lortab. Her vital signs stayed pretty good. Her saturations remained over 90, pulse in the mid 100's. Portable chest x-ray showed the effusion to be improved, and no pneumothorax. [facility]
[~2017-11-29] VITALS: Ht 154.9 cm; Wt 48.3 kg
[~2017-11-29 15:50] MED LIST changes: -APAP/HYDROCODONE 325/5 TAB PO ONE; +LIDOCAINE 2% MDV 400MG/20ML VL ONE
[2017-11-29 16:18] VITALS: BP 102/57
--- NOTE | 2017-11-30 20:04 | ONCOLOGY FOLLOW UP NOTE ---
EVENT DATE: November 29, 2017 REASON FOR FOLLOWUP Squamous cell carcinoma of right lung. CHIEF COMPLAINT Fatigue, shortness of breath. INTERIM HISTORY Catarina returns to clinic for a follow-up visit today. Since our last visit, she has undergone radiation therapy to the right lung between October 22 and November 14. The patient reports that she had done quite well with radiation therapy, but she does endorse ongoing fatigue, as well as some shortness of breath with exertion. She is not getting a lot of physical activity, but she continues to get things done around the house. Her family has been quite helpful to her. She reports no fever. Her appetite has been fair. She is not aware of any particular weight loss. She has followed up with Dr. William in Radiation Oncology, and a recommendation has been made for repeat CT scan in two months. REVIEW OF SYSTEMS Otherwise negative, and all systems were reviewed. ONCOLOGY HISTORY 1. Squamous cell carcinoma of the right lung. a. August 31, 2017, CT angiogram of chest: No evidence of PE, but consolidation was noted in right lower lobe with a small right pleural effusion , thought possibly to represent pneumonia. Additional concerns for right infrahilar mass, potentially causing post obstructive pneumonitis. b. September 17, 2017, CT/PET scan: Hypermetabolic right central and inferior hilar mass encasing the bronchus intermedius and the central airways of the right middle lobe and lower lobes; hypermetabolic superior right hilar adenopathy consistent with metastatic disease; equivocal thickening of the colonic wall likely secondary to its decompressed state and artifactual, but with diffuse FDG uptake. This is likely physiologic. c. April 21, 2017: Bronchoscopy with EBUS and transbronchial needle aspiration of right perihilar region. Pathology reveals evidence of moderately differentiated squamous cell carcinoma compatible with lung origin. d. October 22 through October 14: Radiation therapy to the right lung due to concern for impending bronchial obstruction. PAST MEDICAL HISTORY 1. Long-term smoking. 2. oxygen-dependent COPD. 3. Osteoporosis. 4. Reported history of anxiety. 5. The patient is legally blind due to unknown condition diagnosed per her report in the 1970's. PAST SURGICAL HISTORY 1. Status post some type of bowel resection due to Crohn's disease. 2. She is status post hysterectomy. 3. She is status post cholecystectomy. CURRENT MEDICATIONS 1. Advair Diskus. 2. Albuterol. 3. Antivert. 4. Aricept. 5. Clonazepam. 6. Dicyclomine. 7. Levothyroxine. 8. Omeprazole. 9. Oxybutynin. 10. Paxil. 11. Prolia. 12. Spiriva. 13. Sulfasalazine. 14. Tylenol with codeine. ALLERGIES KEFLEX. SOCIAL HISTORY The patient smokes about a half a pack to a full pack a day, and she has done so since the age of 17. She is a nondrinker. There is no history of illicit drug use. She is a . FAMILY HISTORY There is a history of breast cancer in her sister, who accompanies her to this visit. VITAL SIGNS Temperature 97.0, blood pressure 102/57, pulse 88, respirations 16, oxygen saturation is 88% without oxygen, 96% on 3L. PHYSICAL EXAMINATION GENERAL: Patient is alert and oriented times three in no apparent distress, sitting in exam room chair. She is quiet, but pleasant. HEENT: Exam reveals anicteric sclerae. She is wearing oxygen by nasal cannula. NEUROLOGIC: Exam is grossly nonfocal, although her gait is somewhat slow and antalgic. EXTREMITIES: Exam reveals some clubbing, but no erythema or tenderness on palpation. SKIN: Exam reveals no concerning rash or lesions. ASSESSMENT AND PLAN Squamous cell carcinoma of lung. I had a good visit with Catarina and her sister today. She has done remarkably well with radiation therapy. Her performance status remains marginal, however, which is consistent with her baseline prior to radiation therapy. As discussed, her case has been reviewed at [facility] at the [facility] in [place], and her recent treatment reflects recommendations. I remain concerned about any type of systemic therapy. She is not a chemotherapy candidate due to her advanced age and comorbid conditions. We discussed the results of her PD-L1 testing, which unfortunately have revealed only 5% to 10% expression, and will not allow for upfront therapy with checkpoint inhibitor therapy (pembrolizumab). At this point, I do not have strong evidence for the development of distant metastatic/ systemic progression, however. I would agree with Dr. William that she should have re-imaging in about two months. I will enter an order for a CT scan of the chest, abdomen and pelvis for that purpose. As discussed today, I would be more than happy to see her in the interim, but I would want to see her for sure after her CT scan is performed to review the results. The patient agrees with this plan. EDGAR
== END 2017-12-10 ==
LOC: ONC 15:50
PROVIDERS: ATTEND Internal Medicine Medical Oncology
DX: C34.91 Malignant neoplasm of unspecified part of right bronchus or lung (principal); R91.8 Other nonspecific abnormal finding of lung field; F17.210 Nicotine dependence, cigarettes, uncomplicated; J44.9 Chronic obstructive pulmonary disease, unspecified; R53.83 Other fatigue; R06.02 Shortness of breath; R05 Cough; M54.5 Low back pain
CPT/HCPCS: G0463 ×3; 99202; 99212

== ENCOUNTER 2018-01-29 12:30 | Outpatient (RCR) | payer MEDICARE ==
--- NOTE | 2018-01-28 13:04 | RADIOLOGY IMAGING REPORT ---
FACILITY: [facility] [place] PATIENT NAME: Catarina James : 1945 MR: [id number] V: [id number] EXAM DATE: ORDERING PHYSICIAN: GAEL PRITCHETT TECHNOLOGIST: Location: [facility] [place] Patient: Catarina James : 1945 Visit/Account:[id number] Date of Sevice: 01/28/2018 ADDENDUM #1 Dose Lowering Technique One of the following dose optimization techniques was utilized in the performance of this exam: Autom ated exposure control; adjustment of the mA and/or kV according to the patient's size; or use of an i terative reconstruction technique. Specific details can be referenced in the facility's radiology C T exam operational policy. Report Dictated By: Aiyana oG MD at 01/31/2018 5:06 PM Report E-Signed By: Aiyana Go MD at 01/31/2018 5:06 PM ORIGINAL REPORT CHEST/AB/PELV W/WO CONTRAST HISTORY: Lung cancer ADDITIONAL HISTORY: None. TECHNIQUE: Pre and post administration of IV contrast axial images acquired through the chest abdome n and pelvis during the portal venous phase. Coronal and sagittal reformatting was also performed. CONTRAST: 75 mL Isovue-370 COMPARISON: CTA chest November 15, [address] abdomen and pelvis November 13, 2015 FINDINGS: CHEST: Lungs/Pleura: Centrilobular emphysema again noted throughout the lungs. Again noted is dense airspa ce consolidation in the periphery of the right lower lobe which appears more consolidated when compar ed to the prior study. There is right hilar soft tissue density process slightly less prominent when compared the prior study although again noted is occlusion of the arteries to the right lower lobe. There is coarse septal thickening in the right lower lobe along the inferolateral aspect although th ere is better aeration when compared to the prior study. Right pleural effusion is no longer seen Mediastinum/lymph nodes: Mildly prominent mediastinal lymph nodes including AP window pretracheal reg ion and precarinal region appear relatively unchanged. Heart/vessels: There are mild coronary artery calcifications. Previously noted pericardial effusion is resolved Bones/soft tissues: No aggressive appearing bone lesions are seen ABDOMEN AND PELVIS: Hepatobiliary: Postsurgical changes from a cholecystectomy Spleen: Negative. Pancreas: Negative. Adrenals: Negative. Kidneys ureters and bladder : There is mild thickening of the bladder wall.. Small subcentimeter hyp odensities right kidney are too small to characterize Genitalia: Hysterectomy GI: There is diffuse scattered diverticula in the left-sided colon. There is mild diffuse wall thi ckening in the descending and sigmoid colon and rectum which may be related to colitis/proctitis. Cl inical correlation needed small hiatal hernia Vessels/spaces/nodes: Moderate vascular calcifications Bones/soft tissues: No aggressive bone lesions seen Additional findings: None pertinent. IMPRESSION: Centrilobular emphysema Dense airspace consolidation in the periphery of the right upper lobe appears more consolidated when compared to the prior study. Right hilar soft tissue density process in also appears slightly less p rominent although there is occlusion of the arteries to the right lower lobe similar to the prior exa mination Interval resolution of the right pleural effusion Coarse septal thickening the right lower lobe along the inferolateral aspect is present although ther e is better aeration of the right lower lobe when compared to the prior study Mildly Prominent mediastinal lymph nodes appear unchanged. Mild thickening of the bladder wall could be related to underdistention Scattered diverticula left-sided colon There is mild diffuse wall thickening in the descending and sigmoid colon and rectum which may be rel ated to colitis/proctitis ankle correlation needed Small hiatal hernia Report Dictated By: Aiyana Go MD at 01/28/2018 10:26 AM Report E-Bev By: Aiyana Go MD at 01/28/2018 1:00 PM WSN:[id number]
[~2018-01-29 12:30] MED LIST changes: -CLON-303; -CLON-303 PO; +CLON-304; +CLON-304 PO; +IOPAMIDOL 76% 75 ML INFUS BTL 75 ML ONE; +IPRA3AMP10 IH; -IPRA3AMP21 IH; -LIDOCAINE 2% MDV 400MG/20ML VL ONE
== END 2018-02-19 12:28 | disposition home or self-care (01) ==
LOC: RAON 12:30
PROVIDERS: ATTEND Radiology Radiation Oncology
DX: C34.31 Malignant neoplasm of lower lobe, right bronchus or lung (principal); Z92.3 Personal history of irradiation; J43.2 Centrilobular emphysema; K50.90 Crohn's disease, unspecified, without complications; M81.0 Age-related osteoporosis without current pathological fracture; F41.9 Anxiety disorder, unspecified; E03.9 Hypothyroidism, unspecified; J44.9 Chronic obstructive pulmonary disease, unspecified; Z99.81 Dependence on supplemental oxygen; Z79.899 Other long term (current) drug therapy; F17.210 Nicotine dependence, cigarettes, uncomplicated
CPT/HCPCS: 36415; 71270; 74178; 82565; G0463; Q9967; 99213

== ENCOUNTER 2018-03-13 13:56 | Outpatient (RCR) | payer MEDICARE ==
[2018-03-06 15:31] LABS: PLATELET COUNT, AUTOMATED 371 K/uL (150-450)
[2018-03-06 15:34] VITALS: BP 98/57
--- NOTE | 2018-03-06 17:03 | Oncology Progress Note ---
History of Present Illness Evaluation Evaluation Date: Mar 06, 2018 Evaluation Time: 15:30 Primary Care Provider Primary Care Provider: Sammi Vivar DO Accompanied by Accompanied by: Sister Last seen by : Tiffany William MD rad Onc Chief Complaint Chief Complaint Productive Cough x 8 days, with scant amount of sputum hemoptysis today Oncology History Oncology History 1. Squamous cell carcinoma of the right lung. a. August 31, 2017, CT angiogram of chest: No evidence of PE, but consolidation was noted in right lower lobe with a small right pleural effusion , thought possibly to represent pneumonia. Additional concerns for right infrahilar mass, potentially causing post obstructive pneumonitis. b. September 17, 2017, CT/PET scan: Hypermetabolic right central and inferior hilar mass encasing the bronchus intermedius and the central airways of the right middle lobe and lower lobes; hypermetabolic superior right hilar adenopathy consistent with metastatic disease; equivocal thickening of the colonic wall likely secondary to its decompressed state and artifactual, but with diffuse FDG uptake. This is likely physiologic. c. April 21, 2017: Bronchoscopy with EBUS and transbronchial needle aspiration of right perihilar region. Pathology reveals evidence of moderately differentiated squamous cell carcinoma compatible with lung origin. d. October 22 through November 14/2018: Radiation therapy to the right lung due to concern for impending bronchial obstruction. Treatment Treatment Plan ID Energy Fractions Dose per Fraction (cGy) Total Dose Delivered (cGy) Elapsed Days R [id number] 6X 300 4,500 23 Treatment completed on 11/14/2017 HPI HPI Ms. Erika Elmore, is a 72-year-old female who is legally blind, and Hard of hearing. Patient has Stage IIB, [id number] squamous cell carcinoma of the right lower lobe Dx 04/2017. Patient is not a surgical or cytotoxic chemotherapy candidate. She underwent 4500cGy radiotherapy alone completed 11/14/2017. Patient presents to the cancer center today accompany by her sister Ms. Underwood, she reports increased Productive Cough x 8 days, until this Am when with scant amount of blood tinged sputum came out. She reports nothing makes the cough better. Patient continues to smoke cigarettes 1PPD. She is ill appearing, denies any weight loss, and she is AAOX4 and hemodynamically stable, with delayed in responding to questions, due to impaired hearing and vision. But when spoken to slowly and loud, she responds in a timely manner. Denies cardiac type chest pain, reports chills at home. No changes in appetite, bowel or blader pattern, no bruising, no bleeding, no hematuria or dark stools. No jVD or palpable lymph nodes. Denies any use of anticoagulation, Aspirin, she admits taking Ibuprofen PRN. Patient reports occasional SOb on exertion, and fatigue. Significant PMH of: SVT. Pleural effusion, Chron's disease, UTIs Long-term smoking. she continues to smoke, she is going to quit starting today, and use the patches. oxygen-dependent COPD. on 2L ;Osteoporosis; Reported history of anxiety. Patient has oxygen at home and has been recommended to use it at all times ,she present to clinic today with supplemental oxygen. Living Conditions Lives alone. Current every day smoker. Supportive family/friends willing to assist with needs, 2 children, and much of her care is provided by her sister, kika Diagnostic Studies Result Diagram: 03/06/18 1510 PMH Patient History: FH: COPD (chronic obstructive pulmonary disease) BROTHER OR SISTER FH: alcoholism BROTHER OR SISTER FH: cancer BROTHER OR SISTER BROTHER OR SISTER BROTHER OR SISTER FH: cirrhosis BROTHER OR SISTER FH: diabetes mellitus MOTHER FH: gastric ulcer FATHER OTHER INFECTIOUS AND PARASITIC DISEASES MOTHER Social/Occupational History Social History: Social History This is a 72 Yr old White female, she is S Single and has [] Children Hx Smoking: Yes Smoking Status: Current: Every Day Smoker Exposure to Second Hand Smoke?: Yes Allergies & Medications Allergies: Coded Allergies: cefaclor (Verified Allergy, Unknown, 11/15/17) Home Meds Active Scripts Ipratropium/Albuterol Sulfate (IPRAT-ALBUT 0.5-3(2.5) MG/3 ML) 3 Ml Ampul.neb, 3 ML IH Q4-6H Y for SHORTNESS OF BREATH, #20 VIAL Prov:GINNY HENRIQUEZ 11/15/17 Potassium Chloride (POTASSIUM CHLORIDE) 20 Meq Tab.er.prt, 20 MEQ PO BIDBS, #60 TAB Prov:COTY JACKSON DO 11/08/17 Reported Medications Sulfamethoxazole/Trimet 800-160 Mg Tab (BACTRIM DS TABLET) 1 Each Tablet, 800 MG PO DAILY, TAB Take daily X 7 days; #30 dispensed per prescriber request 7/26/18 Clonazepam (CLONAZEPAM) 1 Mg Tablet 11/07/17 Paroxetine Hcl (PAROXETINE HCL) 10 Mg Tablet 11/07/17 Fluticasone/Salmeterol (ADVAIR 250-50 DISKUS) 1 Each Disk.w.dev 11/07/17 Diltiazem Hcl (DILTIAZEM 24HR ER) 120 Mg Cap.er.24h, 120 11/07/17 Levothyroxine Sodium (LEVOTHYROXINE SODIUM) 0.112 Mg Tab, 0.112 MG PO QDAY, TAB 11/01/17 Multivitamin W-Minerals/Gin (SUPER GINSENG MULTIVIT CAP) 1 Each Capsule, 1 EACH PO QDAY, CAPSULE 01/06/16 Omeprazole (OMEPRAZOLE) 20 Mg Capsule.dr, 1 CAP PO QDAY, CAP 01/06/16 Dicyclomine Hcl (DICYCLOMINE HCL) 10 Mg Capsule, 10 MG PO TID, CAPSULE 01/06/16 Acetaminophen/Codeine (TYLENOL #3 (OR EQUIV)) 1 Ea Tab, 1 EA PO BID-TID, TAB 11/13/15 Calcium Carbonate/Vitamin D3 (CALCIUM WITH VITAMIN D3 SOFTGL) 1 Each Capsule, 1 EACH PO DAILY 01/08/13 Discontinued Reported Medications Biotin (BIOTIN) 1 Mg Tablet, 1 MG PO QDAY 01/06/16 Discontinued Scripts Oxycodone Hcl/Acetaminophen (PERCOCET 5-325 MG TABLET) 1 Each Tablet, 1 EACH PO Q4-6H Y for PAIN, #20 TAB Prov:MARTINEZGINNY PARKING [employer] PAINTER 11/15/17 Vital Signs Vital Signs Temperature: 97.6 Pulse: 88 BP Systolic: 98 BP Diastolic: 57 Respiratory Rate: 16 O2 SAT: 95 O2 Delivery: Height (feet) Height (inches) 61.00 Weight lb: 102 Weight oz: 8.0 Weight Kg (Chava): Pain: 0 Assessment and Plan Assessment and Plan Ms. Erika Elmore, is a 72-year-old female who is legally blind, and Hard of hearing. Patient has Stage IIB, [id number] squamous cell carcinoma of the right lower lobe Dx 04/2017. Patient is not a surgical or cytotoxic chemotherapy candidate. She underwent 4500cGy radiotherapy alone completed 11/14/2017. Patient presents to the cancer center today accompany by her sister Ms. Underwood, she reports increased Productive Cough x 8 days, until this Am when with scant amount of blood tinged sputum came out. She reports nothing makes the cough better. Significant PMH of: SVT. 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 Patient has oxygen at home and has been recommended to use it at all times ,she present to clinic today with supplemental oxygen. Diagnostic data WBCs 5.5; hemoglobin 13.4; hematocrit 37.3; MCV 109.8; MCH 39.5; RDW 15.9; MPV 6.8; ANC 3.3; magnesium of 1.7; CT chest/abdomen/pelvis was extensively reviewed with patient on 01/28/[address] William IMPRESSION: Centrilobular emphysema Dense airspace consolidation in the periphery of the right upper lobe appears more consolidated when compared to the prior study (per my review, expected post -treatment pulmonary fibrosis). - Right hilar soft tissue density process in also appears slightly less prominent although there is occlusion of the arteries to the right lower lobe similar to the prior examination Interval resolution of the right pleural effusion. - Coarse septal thickening the right lower lobe along the inferolateral aspect is present although there is better aeration of the right lower lobe when compared to the prior study Mildly Prominent mediastinal lymph nodes appear unchanged. Mild thickening of the bladder wall could be related to underdistention Scattered diverticula left-sided colon There is mild diffuse wall thickening in the descending and sigmoid colon and rectum which may be related to colitis/proctitis ankle correlation needed Small hiatal hernia 1. Stage IIB, [id number] squamous cell carcinoma of the right lower lobe Dx 04/2017 . Patient is not a surgical or cytotoxic chemotherapy candidate. She underwent radiotherapy alone completed 11/14/2017. s/p CT C/A/P ON 01/28/2018 2. Presumed Pneumonia. She reports Productive Cough x 8 days, with scant amount of sputum hemoptysis today. Physical exam reveals diminished lung sounds, thick blood tinged sputum. s/p XRT on 11/14/2017. empiric antibiotic initiated, Levaquin /bactrim on board. will look for prelim, for sensitivity to sputum specimen. Patient and sister instructed to Go to ER immediately if symptoms do not improve in the next 48 hours. Patient and Ms. Underwood agree with treatment plan. 3. Expected post- XRT treatment pulmonary fibrosis. we will continue to monitor for symptom closely. 4. Hypomagnesemia. Mag is 1.7. patient to take OTC magnesium supplement daily. 5. 1PPd Smoker. Smoking cessation education reinforced, about the risk of smoking, and to use extreme caution using Oxygen while smoking. she is going to quit starting today, and use nicotine patches. CHRONIC 1. Long-term smoking. she continues to smoke, she is going to quit starting today, and use the patches. 2. 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 Osteoporosis. 4. Reported history of anxiety. 5. The patient is legally blind, and Hard of hearing due to unknown condition diagnosed per her report in the 6. SVT supraventricular tachycardia on diltiazem 6. R lung pleural effusion. resolving 7. UTI 8 Chrons disease 9. Cholecystectomy 10. Bowel resection PLAN #1 administer 1 L of normal saline IV 1 now for a BP of 98/57-88 #2 administer Levaquin 750 mg by mouth 1 now. Rx 14 days given #3 administer 20mL of Guaifenesin x1 Now. Rx 14 days given. 3a. We will add Bactrim Ds 1 tab Po daily, #30 Pills, patient to complete 10-21 days treatment, then Will place her on PPfx PCP PNA M/W/F. #4 Send sputum for C/S and gram stain #5 Patient to follow up next Sunday03/13/2018 #6 Patient to bring log of hear rate, and continue to take Diltiazem Daily as prescribed. vs to what her daughter advised her to take it PRN when she has palpitations. #7 Teaching and written instructions provided to patient and sister in regards to importance of taking Diltiazem as prescribed. Patient instructed to check hear rate daily for one week, and she may wait 2 hours before taking diltiazem if heart rate is less than 60bpm. and recheck it, throughout the day. #8. Patient to go to ER immediately if SOB, non improvement of symptoms. Nursing staff to place a courtesy call to patient on Sunday for treatment response #9 Patient may continue supportive measures, decongestant, cough drops, hydration, oxygen, and Smoking cessation. #10 patient to take OTC magnesium supplement daily. Patient may take Tylenol for pain. #11. RTC with any issues or concerns. -Education, patient instructed to go to ER immediately and or call Clinic if any Shortness of Breath, Temp >/=100.4, fevers, chills, cardiac type chest pain , bleeding, excessive bruising, headaches, blurry vision, dizziness, abdominal pain, difficulty swallowing, and pain unrelieved by medication. TIME SPENT: 45 minutes 40 > minutes includes but not limited to discussion, counselling and co-ordination~ of care. Discussion with other health care providers, record review, review of lab work, diagnostic tests. Plan discussed extensively with patient. All the questions answered today. Thank you for the opportunity to be involved in the care of Erika Graamjo Level: Sick visit 5 ADAM URIAS, ONC Mar 06, 2018 17:03
[2018-03-06 17:47] VITALS: BP 111/63
[~2018-03-13 13:56] MED LIST changes: +DEXTROSE 5%(*) 100 ML BAG 100 ML IVPB PRN; -IOPAMIDOL 76% 75 ML INFUS BTL 75 ML ONE; +LEVOFLOXACIN 750 MG TAB PO ONE; +LIDOCAINE/SOD BICARB 8.4% SYR ID PRN; +NS(*) 0.9% 100 ML BAG 100 ML IVPB PRN; +NS(*) 0.9% 1000 ML BAG 1,000 ML IV ONE; +guaiFENesin SYRP 100MG/5ML UDC PO ONE
[2018-03-13 14:36] VITALS: BP 114/53
--- NOTE | 2018-03-13 16:57 | Oncology Note ---
[facility] Patient History: FH: COPD (chronic obstructive pulmonary disease) BROTHER OR SISTER FH: alcoholism BROTHER OR SISTER FH: cancer BROTHER OR SISTER BROTHER OR SISTER BROTHER OR SISTER FH: cirrhosis BROTHER OR SISTER FH: diabetes mellitus MOTHER FH: gastric ulcer FATHER OTHER INFECTIOUS AND PARASITIC DISEASES MOTHER Social/Occupational History Social History: Social History This is a 72 Yr old White female, she is S Single and has [] Children Hx Smoking: Yes Smoking Status: Current: Every Day Smoker Exposure to Second Hand Smoke?: Yes Allergies & Medications Allergies: Coded Allergies: cefaclor (Verified Allergy, Unknown, 11/15/17) Home Meds Active Scripts Ipratropium/Albuterol Sulfate (IPRAT-ALBUT 0.5-3(2.5) MG/3 ML) 3 Ml Ampul.neb, 3 ML IH Q4-6H Y for SHORTNESS OF BREATH, #20 VIAL Prov:GINNY HENRIQUEZ LIGHT OIL OPERATOR 11/15/17 Potassium Chloride (POTASSIUM CHLORIDE) 20 Meq Tab.er.prt, 20 MEQ PO BIDBS, #60 TAB Prov:COTY JACKSON DO 11/08/17 Reported Medications Sulfamethoxazole/Trimet 800-160 Mg Tab (BACTRIM DS TABLET) 1 Each Tablet, 800 MG PO DAILY, TAB Take daily X 7 days; #30 dispensed per prescriber request 03/07/18 Clonazepam (CLONAZEPAM) 1 Mg Tablet 11/07/17 Paroxetine Hcl (PAROXETINE HCL) 10 Mg Tablet 11/07/17 Fluticasone/Salmeterol (ADVAIR 250-50 DISKUS) 1 Each Disk.w.dev 11/07/17 Diltiazem Hcl (DILTIAZEM 24HR ER) 120 Mg Cap.er.24h, 120 11/07/17 Levothyroxine Sodium (LEVOTHYROXINE SODIUM) 0.112 Mg Tab, 0.112 MG PO QDAY, TAB 11/01/17 Multivitamin W-Minerals/Gin (SUPER GINSENG MULTIVIT CAP) 1 Each Capsule, 1 EACH PO QDAY, CAPSULE 01/06/16 Omeprazole (OMEPRAZOLE) 20 Mg Capsule.dr, 1 CAP PO QDAY, CAP 01/06/16 Dicyclomine Hcl (DICYCLOMINE HCL) 10 Mg Capsule, 10 MG PO TID, CAPSULE 01/06/16 Acetaminophen/Codeine (TYLENOL #3 (OR EQUIV)) 1 Ea Tab, 1 EA PO BID-TID, TAB 11/13/15 Calcium Carbonate/Vitamin D3 (CALCIUM WITH VITAMIN D3 SOFTGL) 1 Each Capsule, 1 EACH PO DAILY 01/08/13 Evaluation Evaluation Date: March 13, 2018 Evaluation Time: 13:30 Chief Complaint Chief Complaint f/u Productive Cough x 8 days, with scant amount of sputum hemoptysis Oncology History Oncology History 1. Squamous cell carcinoma of the right lung. a. August 31, 2017, CT angiogram of chest: No evidence of PE, but consolidation was noted in right lower lobe with a small right pleural effusion , thought possibly to represent pneumonia. Additional concerns for right infrahilar mass, potentially causing post obstructive pneumonitis. b. September 17, 2017, CT/PET scan: Hypermetabolic right central and inferior hilar mass encasing the bronchus intermedius and the central airways of the right middle lobe and lower lobes; hypermetabolic superior right hilar adenopathy consistent with metastatic disease; equivocal thickening of the colonic wall likely secondary to its decompressed state and artifactual, but with diffuse FDG uptake. This is likely physiologic. c. April 21, 2017: Bronchoscopy with EBUS and transbronchial needle aspiration of right perihilar region. Pathology reveals evidence of moderately differentiated squamous cell carcinoma compatible with lung origin. d. October 22 through November 14/2018: 4500 cGy Radiation therapy to the right lung due to concern for impending bronchial obstruction. REVIEW OF SYSTEMS CONSTITUTION: denies fevers, sweats, change in appetite, energy, or weight EYES: No blurred vision, no double vision ENT: no mouth soreness, trouble swallowing, neck masses RESPIRATORY: Denies pleuritic pain, dyspnea, wheezing, +coughing CARDIOVASCULAR: Denies cardiac type chest pain, palpitations, leg edema GI: denies trouble swallowing, indigestion, abdominal pain, diarrhea, constipation, : No blood in the urine, no urinary urgency/frequency, no dysuria, no black stools MUSCULOSKELETAL: no joint pain, no muscle pain, no limited ROM, no back pain NEURO: denies headaches, dizziness, neuropathy, focal weakness SKIN: denies bruising, rashes, changing or suspicious lesions, HEMATOLOGY: denies spontaneous bleeding, denies non-palpable nodes PSYCH: denies mood changes, depression, anxiety PHYSICAL EXAM Vital Signs Temperature: 97.0 Pulse: 79 BP Systolic: 114 BP Diastolic: 53 Respiratory Rate 16 Oxygen 92% 2L nasal canula. PERFORMANCE STATUS: ECOG 2- GENERAL: pleasant conversant, in no apparent distress ORAL: mucosa moist without lesions, pharynx not injected EYES: no icterus, no pale conjunctivae, EOMI, PERRLA NECK: supple, no masses, no palpable lymph nodes LUNGS: breathing, non-labored. diminished lung sounds, No chest pain, orthopnea , or paroxysmal nocturnal dyspnea (PND). No edema. No palpitations. CVS: regular rate, rhythm, nl s1, s2, no murmurs ABD: normal bowel sounds, soft non tender, non-distended, no hepatomegaly, no splenomegaly, no masses EXTREMITIES: no edema, no cyanosis MUSCULOSKELETAL: grossly normal gait, range of motion stable Assessment and Plan Assessment and Plan Ms. Erika Elmore, is a 72-year-old female who is legally blind, and Hard of hearing. Patient has Stage IIB, [id number] squamous cell carcinoma of the right lower lobe Dx 04/2017. Patient is not a surgical or cytotoxic chemotherapy candidate. She underwent 4500cGy radiotherapy alone completed 11/14/2017. Patient presents to the cancer center today accompany by her sister Ms. Underwood, to follow up on her response to treatment. Patient reports feeling much better , minimal cough, no blood tinged sputum . no pain while coughing, she continues to smoke. That said, she is making an effort to quit, and kidd started the nicotine patches. Significant PMH of: SVT. 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 Patient has oxygen at home and has been recommended to use it at all times ,she present to clinic today with supplemental oxygen. 1. Stage IIB, [id number] squamous cell carcinoma of the right lower lobe Dx 04/2017 . Patient is not a surgical or cytotoxic chemotherapy candidate. She underwent radiotherapy alone completed 11/14/2017. s/p CT C/A/P ON 01/28/2018 2. Presumed Pneumonia. resolving. empiric antibiotic initiated, Levaquin/ bactrim on board. sputum specimen was negative She presented with Productive Cough x 8 days, with scant amount of sputum hemoptysis today. Physical exam reveals diminished lung sounds, thick blood tinged sputum. s/p XRT on 11/14/2017. 3. Expected post- XRT treatment pulmonary fibrosis. we will continue to monitor for symptom closely. 4. Hypomagnesemia. Mag is 1.7. patient to take OTC magnesium supplement daily. 5. 1PPd Smoker. Smoking cessation education reinforced, about the risk of smoking, and to use extreme caution using Oxygen while smoking. she is going to quit starting today, and use nicotine patches. CHRONIC 1. Long-term smoking. she continues to smoke, she is going to quit starting today, and use the patches. 2. 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 Osteoporosis. 4. Reported history of anxiety. 5. The patient is legally blind, and Hard of hearing due to unknown condition diagnosed per her report in the 1970s 6. SVT supraventricular tachycardia on diltiazem 6. R lung pleural effusion. resolving 7. UTI 8 Chrons disease 9. Cholecystectomy 10. Bowel resection PLAN - Continue course of antibiotics as instructed - Patient to initiate Bactrim 1 tab q-MWF PCP ppfx - will treat with pulse Dex x5 days, if COPD exacerbation presentations, -Patient to follow up with PCP Dr. Vivar on 04/04/18 - Recommend Pulmonology consult/rehab - May use salt gargles, aloe vera juice for ppfx mucositis -Continue to take cardiac medication as prescribed -Patient to check pulse before and after administration of albuterol inhaler. - She is able to only ambulate for 2 blocks before desaturating to low 60s. Continue O2 use. - she is using nicotine patch, and continue to try to stop smoking. - Follow up with CT chest in 3 months with MD/STEVEN. 06/2018 -Patient may continue supportive measures, decongestant, cough drops, hydration , oxygen, and Smoking cessation. - patient to take OTC magnesium supplement daily. Patient may take Tylenol for pain. - RTC with any issues or concerns. Education, patient instructed to go to ER immediately and or call Clinic if any Shortness of Breath, Temp >/=100.4, fevers, chills, cardiac type chest pain, bleeding, excessive bruising, headaches, blurry vision, dizziness, abdominal pain, difficulty swallowing, and pain unrelieved by medication. TIME SPENT: 20 minutes 15 > minutes includes but not limited to discussion, counselling and co-ordination~ of care. Discussion with other health care providers, record review, review of lab work, diagnostic tests. Plan discussed extensively with patient. All the questions answered today. Thank you for the opportunity to be involved in the care of Erika Gramajo Level: Sick visit 3 ADAM URIAS, ONC Mar 13, 2018 16:57
== END 2018-04-12 10:30 | disposition home or self-care (01) ==
LOC: ONC 13:56
PROVIDERS: ATTEND Internal Medicine Medical Oncology
DX: C34.91 Malignant neoplasm of unspecified part of right bronchus or lung (principal); R91.8 Other nonspecific abnormal finding of lung field; F17.210 Nicotine dependence, cigarettes, uncomplicated; J44.9 Chronic obstructive pulmonary disease, unspecified; R53.83 Other fatigue; R06.02 Shortness of breath; R05 Cough; M54.5 Low back pain; K50.90 Crohn's disease, unspecified, without complications; I47.1 Supraventricular tachycardia; Z99.81 Dependence on supplemental oxygen; N39.0 Urinary tract infection, site not specified; H54.8 Legal blindness, as defined in USA; H91.90 Unspecified hearing loss, unspecified ear
CPT/HCPCS: 83735; 85025; 87070; 87205; 96360; A9270; G0463; J7030; 99212

== ENCOUNTER → 2018-05-02 | Outpatient (CLI) | payer MEDICARE ==
[~2018-05-02] MED LIST changes: -DEXTROSE 5%(*) 100 ML BAG 100 ML IVPB PRN; -LEVOFLOXACIN 750 MG TAB PO ONE; -LIDOCAINE/SOD BICARB 8.4% SYR ID PRN; -NS(*) 0.9% 100 ML BAG 100 ML IVPB PRN; -NS(*) 0.9% 1000 ML BAG 1,000 ML IV ONE; -guaiFENesin SYRP 100MG/5ML UDC PO ONE
--- NOTE | 2018-05-02 15:12 | RADIOLOGY IMAGING REPORT ---
FACILITY: [facility] - [place] PATIENT NAME: Catarina James : 1945 MR: [id number] V: [id number] EXAM DATE: ORDERING PHYSICIAN: GAEL PRITCHETT TECHNOLOGIST: Location: [facility] [place] Patient: Catarina James : 1945 Visit/Account:[id number] Date of Sevice: 05/02/2018 CHEST W/O CONTRAST History: Lung cancer TECHNIQUE: Contiguous axial images were performed through the chest to the level of the adrenal gla nds. No IV contrast was administered. Coronal and sagittal reformatting was also performed. Dose Lowe ring Technique One of the following dose optimization techniques was utilized in the performance of this exam: Autom ated exposure control; adjustment of the mA and/or kV according to the patient's size; or use of an i terative reconstruction technique. Specific details can be referenced in the facility's radiology C T exam operational policy. COMPARISON STUDIES: January 28, 2018. Lungs / Pleura: Centrilobular emphysema again noted throughout the lungs. Dense airspace consolidation in the periphery of the superior anterior aspect of the right lower lobe appears slightly less prominent when compared to the prior study. There are increasing spiculations however identified in the right lower lobe, the largest of these measures approximately 1.4 cm in di ameter. Coarse septal thickening in the right lower lobe appears relatively unchanged. Chronic atel ectasis of the medial right middle lobe with air bronchograms appears similar to the prior study Mediastinum/nodes: The mediastinal structures are not well evaluated due to lack of intravenous cont rast. Mildly prominent mediastinal lymph nodes including AP window pretracheal and precarinal lymph nodes appear relatively unchanged. Right hilar soft tissue prominence also appears relatively unchan ged Heart and vessels: Coronary artery calcifications again noted. Musculoskeletal / Body wall: Gentle S-shaped scoliosis of the thoracic spine. No aggressive appear ing bone lesions are seen Upper abdomen: Visualized abdominal viscera negative. IMPRESSION: Dense airspace consolidation in the periphery of the superior anterior aspect right lower lobe appear s slightly less prominent when compared the prior study. There are however increasing spiculations i n the right lower lobe, the largest of these measures approximate 1.4 cm in diameter. Metastatic nod ules are of concern. Chronic atelectasis in the medial aspect the right middle lobe and coarse septal thickening the right lower lobe appears unchanged Mediastinal structures not ideally evaluated due to lack of intravenous contrast although the mildly prominent mediastinal lymph nodes appear grossly unchanged as does the right perihilar soft tissue pr ominence Report Dictated By: Aiyana Go MD at 05/02/2018 2:50 PM Report E-Signed By: Aiyana Go MD at 05/02/2018 3:07 PM WSN:[email or web address]
== END ==
LOC: CT 13:48
PROVIDERS: ATTEND Radiology Radiation Oncology
DX: C34.31 Malignant neoplasm of lower lobe, right bronchus or lung (principal); J98.11 Atelectasis
CPT/HCPCS: 71250

== ENCOUNTER 2018-05-09 11:53 | Outpatient (RCR) | payer MEDICARE ==
[~2018-05-09 11:53] MED LIST changes: -CLON-304; -CLON-304 PO; +CLON-333; +CLON-333 PO
[2018-05-09] MEDS ORDERED: INFLUENZA VIRUS VAC 0.5ML SYR IM ONLY ONE (12:30)
--- NOTE | 2018-05-09 21:46 | ONCOLOGY FOLLOW UP NOTE ---
EVENT DATE: May 09, 2018 REASON FOR VISIT Oncologic evaluation regarding a stage IIB, [id number] squamous cell carcinoma of the right lower lobe. The patient was not a surgical or cytotoxic chemotherapy candidate. The patient completed definitive radiotherapy alone, completed on November 14, 2017, to a dose of 4500 cGy in 15 fractions. HISTORY OF PRESENT ILLNESS Patient presents today for routine followup. On presentation today, the patient states that she is in her usual state of health. Her shortness of breath is stable. She does supplemental oxygen intermittently at home. She does become short of breath after walking approximately 50 feet. The patient reports an occasional cough which is generally nonproductive. She has no hemoptysis. She has no significant dysphagia. The patient does continue to smoke. The patient underwent a restaging CT scan of the chest on May 02, 2018, which showed dense airspace consolidation in the periphery of the superoanterior aspect of the right lower lobe which appears slightly less prominent compared to prior study. There is, however, increasing spiculations in the right lower lobe, the largest measuring approximately 1.4 cm in diameter. Metastatic nodules are a possibility. There is no evidence of significant lymphadenopathy. PAST MEDICAL HISTORY 1. Squamous cell carcinoma of the lung, clinical [id number], diagnosed in April 2017 via bronchoscopy with EBUS and transbronchial needle aspirate of the right perihilar lymph node. The patient on PET/CT scan in September 2017 had a hypermetabolic right central and inferior hilar mass. The patient proceeded with definitive radiotherapy to a dose of 45 Gy in 15 fractions, completed in November 2017. 2. Crohn disease. 3. Osteoporosis. 4. Anxiety. 5. Hypothyroidism. 6. Migraine headaches. 7. COPD with oxygen dependence. 8. Peptic ulcer disease. SURGICAL HISTORY 1. Bowel resection due to Crohn disease. 2. Cholecystectomy. 3. Hysterectomy. 4. Lung biopsy. ALLERGIES CEFACLOR. MEDICATIONS 1. Ipratropium/albuterol nebulizer. 2. Potassium chloride. 3. Bactrim double strength. 4. Clonazepam. 5. Paroxetine. 6. Fluticasone/salmeterol inhaler. 7. Diltiazem. 8. Levothyroxine. 9. Multivitamin. 10. Omeprazole. 11. Dicyclomine. 12. Codeine. 13. Tylenol. 14. Calcium carbonate and vitamin D3. SOCIAL HISTORY The patient is a current everyday smoker. No significant drug or alcohol history. She is supported by her family and friends, including her sister, Yasmine. FAMILY HISTORY Noncontributory. PHYSICAL EXAMINATION VITAL SIGNS: Temperature 96.5, pulse 84, blood pressure 99/65, respiratory rate 16, O2 saturation is 90% on room air. CONSTITUTIONAL/GENERAL APPEARANCE: Patient is sitting comfortable in a chair, no acute distress. HEENT: Pupils equal, round, and reactive to light and accommodation. Extraocular movements are intact. There are no lesions in the oropharynx. NECK: Supple. Trachea midline. LYMPHATIC SURVEY: No palpable supraclavicular lymphadenopathy bilaterally. LUNGS: Clear to auscultation and percussion bilaterally. CARDIOVASCULAR: Regular rate and rhythm. Normal S1, S2. No murmurs, rubs, gallops. ABDOMEN: Soft, nontender with active bowel sounds. No hepatosplenomegaly. EXTREMITIES: No edema, clubbing, or cyanosis. NEUROLOGIC: The patient is alert and oriented times three. Gait is normal. IMPRESSION The patient is a 72-year-old woman with significant chronic obstructive pulmonary disease and multiple medical comorbidities, status post definitive radiotherapy for a clinical tumor 2, nodes 1, squamous cell carcinoma of the lung. The patient clinically is stable. On CT scan, she does have a few small spiculated areas which are new on CT scan adjacent to her previously treated lesion. This may represent postradiation changes versus recurrent disease. We will plan to observe these closely. PLAN The patient will follow up with Radiation Oncology in three months with a repeat CT scan of the chest. She will continue to follow closely with Dr. Colon for Medical Oncology. EDGAR
== END 2018-06-10 14:27 | disposition home or self-care (01) ==
LOC: RAON 11:53
PROVIDERS: ATTEND Radiology Radiation Oncology
DX: C34.31 Malignant neoplasm of lower lobe, right bronchus or lung (principal); Z92.3 Personal history of irradiation; J44.9 Chronic obstructive pulmonary disease, unspecified; Z99.81 Dependence on supplemental oxygen; Z79.899 Other long term (current) drug therapy; F17.210 Nicotine dependence, cigarettes, uncomplicated
CPT/HCPCS: 99212

== ENCOUNTER → 2018-10-29 | Outpatient (CLI) | payer MEDICARE ==
[~2018-10-29] MED LIST changes: +DILT120C12 PO; -DILT120C18 PO
--- NOTE | 2018-10-30 17:25 | RADIOLOGY IMAGING REPORT ---
FACILITY: [facility] PATIENT NAME: BONNIE MCKINLEY : [id number] MR: [id number] V: [id number] EXAM DATE: [id number] ORDERING PHYSICIAN: SULTANA HOUSER TECHNOLOGIST: Stephanie Borden PROCEDURE:BILATERAL DIGITAL SCREENING MAMMOGRAM WITH CAD ASSISTED INTERPRETATION & 3D TOMOSYNTHESIS COMPARISON:Prior mammograms dated 09/01/16, 11/12/14, 06/20/13 INDICATIONS:screening FINDINGS: There are scattered areas of fibroglandular densities throughout the breasts. The parenchymal pattern has remained stable when allowing for difference in mammographic technique & patient positioning. DIAGNOSTIC CATEGORY 1--NEGATIVE. RECOMMENDATIONS: ROUTINE MAMMOGRAM AND CLINICAL EVALUATION. IMPRESSION: BIRADS 1: Negative. No significant abnormality is seen. Dictated by: Aiyana Go M.D. on 10/30/2018 at 8:24 Transcribed by: LEXI on 10/30/2018 at 10:07 Approved by: Aiyana Go M.D. on 10/30/2018 at 17:24 [facility]
== END ==
LOC: MAMO 01:27
PROVIDERS: ATTEND Family Medicine
DX: Z12.31 Encounter for screening mammogram for malignant neoplasm of breast (principal)
CPT/HCPCS: 77063; 77067

== ENCOUNTER → 2018-12-26 | Outpatient (CLI) | payer MEDICARE ==
[2018-12-26 13:23] LABS: PLATELET COUNT, AUTOMATED 275 K/uL (150-450)
== END ==
LOC: LAB 12:59
PROVIDERS: ATTEND Nurse Practitioner Family
DX: K50.90 Crohn's disease, unspecified, without complications (principal); K21.9 Gastro-esophageal reflux disease without esophagitis; R68.81 Early satiety
CPT/HCPCS: 36415; 82040; 82247; 82310; 82374; 82435; 82565; 82947; 84075; 84132; 84155; 84295; 84450; 84460; 84520; 85025; 86140

== ENCOUNTER → 2019-01-09 | Outpatient (CLI) | payer MEDICARE ==
--- NOTE | 2019-01-09 15:04 | EKG ---
FACILITY: [facility] - [place] PATIENT NAME: BONNIE MCKINLEY : [id number] MR: [id number] V: [id number] EXAM DATE: ORDERING PHYSICIAN: SULTANA HOUSER TECHNOLOGIST: ZOHAIB Test Reason : PRE OP Blood Pressure : / mmHG Vent. Rate : 100 BPM Atrial Rate : 100 BPM P-R Int : 156 ms QRS Dur : 080 ms QT Int : 356 ms P-R-T Axes : 053 064 060 degrees QTc Int : 459 ms Normal sinus rhythm RSR' or QR pattern in V1 suggests right ventricular conduction delay Possible Anterior infarct , age undetermined Abnormal ECG When compared with ECG of 20-NOV-2017 13:07, premature atrial complexes are no longer present Confirmed by COTY JACKSON ([id number]) on 01/09/2019 6:20:03 PM Referred By: CORRINA Confirmed By:COTY JACKSON
--- NOTE | 2019-01-09 15:23 | RADIOLOGY IMAGING REPORT ---
FACILITY: [facility] - [place] PATIENT NAME: Catarina James : 1945 MR: [id number] V: [id number] EXAM DATE: ORDERING PHYSICIAN: SULTANA HOUSER TECHNOLOGIST: Location: [facility] - [place], [place] Patient: Catarina James : 1945 Visit/Account:[id number] Date of Sevice: 01/09/2019 Exam type: CHEST PA LAT History: Cough x2 months, history of lung cancer, smoker half a pack per day x56 years Comparison: November 20, 2017. Findings: Thick linear bands of consolidation are identified in the lung bases, right greater than left. This does appear partially improved when compared to November 20, 2017. This may represent scarring or atele ctasis. No new areas of pulmonary consolidation are identified. No evidence of pleural effusions or cardiomegaly. There are surgical clips right upper quadrant of abdomen IMPRESSION: 1. Coarse linear stranding in the lung bases appears partially improved when compared the prior stud y. Differential diagnosis includes scarring versus atelectasis Report Dictated By: Aiyana Go MD at 01/09/2019 3:14 PM Report E-Signed By: Aiyana Go MD at 01/09/2019 3:17 PM WSN:[email or web address]
== END ==
LOC: RAD 14:19
PROVIDERS: ATTEND Family Medicine
DX: Z01.818 Encounter for other preprocedural examination (principal); R91.8 Other nonspecific abnormal finding of lung field; R94.31 Abnormal electrocardiogram [ECG] [EKG]
CPT/HCPCS: 71046; 93005

== ENCOUNTER → 2019-02-06 | Outpatient (CLI) | payer MEDICARE ==
[~2019-02-06] MED LIST changes: -OMEP-125; -OMEP-125 PO; +OMEP-126; +OMEP-126 PO
== END ==
LOC: LAB 11:28
PROVIDERS: ATTEND Nurse Practitioner Family
DX: K50.90 Crohn's disease, unspecified, without complications (principal); D64.9 Anemia, unspecified
CPT/HCPCS: 36415; 83540; 83550

== ENCOUNTER 2019-03-06 01:39 | Day surgery (SDC) | payer MEDICARE ==
[~2019-03-06] VITALS: Ht 157.5 cm; Wt 53.5 kg
[~2019-03-06 01:39] MED LIST changes: +ZINC30CA2 PO
[2019-03-06] MEDS ORDERED: PROPOFOL EMUL(*) 10MG/ML 20 ML 40 ML ONE (07:17)
[2019-03-06 09:26] VITALS: BP 99/69
[2019-03-06] MEDS ORDERED: NORMOSOL R SOLN(*) 1000 ML BAG 1,000 ML IV PRN (11:20)
[2019-03-06] MEDS ORDERED: LIDOCAINE/SOD BICARB 8.4% SYR ID ONE (11:20)
[2019-03-06] MEDS ORDERED: PROPOFOL EMUL(*) 10MG/ML 20 ML 20 ML ONE (11:30)
[2019-03-06 11:49] VITALS: BP 78/50
[2019-03-06 12:00] VITALS: BP 95/63
--- NOTE | 2019-03-06 12:16 | NUR ---
1149 PT ARRIVED TO [place] VIA CART, SAFETY MAINTAINED, SBAR FROM Alberto MARQUEZ RN AND DR. VILLANUEVA. PT IN L LATERAL POSITION, VSS, EXCEPT FOR LOW BP, FLUIDS WIDE OPEN AND PT AROUSED, BP REPEATED AND COMING UP, PT DROWSY 1155 DR. ABREU AT BEDSIDE TO DESCRIBE FINDINGS WITH DAUGHTER, PT HAVING COUGHING FIT, UP TO HIGH FOWLERS, AUDIBLY WHEEZING 1200 REQUESTED BREATHING TREATMENT ORDER FORM DR. VILLANUEVA APPROVED, WILL HOLD OFF ON PAIN PILL FOR LEG PAIN AT THIS TIME. BP LOW, READJUSTED CUFF, REPEATED, WNL.
[2019-03-06] MEDS ORDERED: ALBUTEROL/IPRATROPIUM 3 ML NEB ONE (12:17)
[2019-03-06 12:30] VITALS: BP 91/53
[2019-03-06 12:37] VITALS: BP 107/62
[2019-03-06 12:39] VITALS: BP 100/49
--- NOTE | 2019-03-06 15:31 | EKG ---
FACILITY: [facility] - [place] PATIENT NAME: BONNIE MCKINLEY : [id number] MR: [id number] V: [id number] EXAM DATE: ORDERING PHYSICIAN: COTY VILLANUEVA TECHNOLOGIST: Test Reason : recent chest pain Blood Pressure : / mmHG Vent. Rate : 084 BPM Atrial Rate : 084 BPM P-R Int : 168 ms QRS Dur : 078 ms QT Int : 402 ms P-R-T Axes : 024 -15 045 degrees QTc Int : 475 ms Sinus rhythm with premature atrial complexes Possible left atrial enlargement Borderline left axis Low voltage QRS Borderline ECG Confirmed by LYN LYNNE ([id number]) on 03/07/2019 5:48:53 AM Referred By: Confirmed By:LYN LYNNE
== END 2019-03-06 13:05 | disposition home or self-care (01) ==
LOC: OR 01:39
PROVIDERS: ATTEND Internal Medicine Gastroenterology
DX: D12.0 Benign neoplasm of cecum (principal); K64.9 Unspecified hemorrhoids; R68.81 Early satiety; K29.70 Gastritis, unspecified, without bleeding; K44.9 Diaphragmatic hernia without obstruction or gangrene; K20.9 Esophagitis, unspecified; E03.9 Hypothyroidism, unspecified; R07.9 Chest pain, unspecified
CPT/HCPCS: 00813; 43239; 45380; 45385; 88305; 88313; 88342; 93005; 94640; J2704; J7620